=== PATIENT | male | born 1995 | race Caucasian/White ===

== ENCOUNTER 2020-02-25 09:59 | Outpatient (REF) | payer OTHER, SELFPAY | END 2020-02-25 10:00 | disposition home or self-care (01) | LOC: HO.LNP 09:59 | PROVIDERS: Visit Provider Nurse Practitioner Family | DX: L03.039 Cellulitis of unspecified toe (principal) | CPT/HCPCS: 87071; 87205 ==

== ENCOUNTER 2020-03-20 08:07 | Outpatient (RCR) | payer OTHER, SELFPAY | END 2020-03-22 12:05 | disposition home or self-care (01) | LOC: HO.WCC 08:07 | PROVIDERS: PCP Nurse Practitioner Family; Visit Provider Plastic Surgery | DX: Z09 Encounter for follow-up examination after completed treatment for conditions other than malignant neoplasm (principal); M79.675 Pain in left toe(s); Q05.9 Spina bifida, unspecified; L84 Corns and callosities | CPT/HCPCS: 99211 ==

== ENCOUNTER 2020-10-30 12:55 | Outpatient (RCR) | payer OTHER, SELFPAY | END 2020-11-28 11:42 | disposition home or self-care (01) | LOC: HO.WCC 12:55 | PROVIDERS: Visit Provider Physician Assistant | DX: S30.810A Abrasion of lower back and pelvis, initial encounter (principal); Q05.7 Lumbar spina bifida without hydrocephalus; Z99.3 Dependence on wheelchair | CPT/HCPCS: 11042; 99212 ==

== ENCOUNTER 2024-02-11 16:34 | Inpatient (IN) | payer OTHER, SELFPAY ==
[2024-02-11] VITALS (9 sets, daily range): BP systolic 108–158; BP diastolic 52–94; PULSE 107–121; RESP 17–21; TEMP 36.8–38.4; O2SAT 88–98; BMI 21.5
--- NOTE | ~2024-02-11 | US_ITS ---
EXAMINATION: US SCROTUM CLINICAL INFORMATION: Left-sided swelling. Pain. COMPARISON: None available. TECHNIQUE: A sonogram of the scrotum was performed assessing painting-scale appearance and color Doppler flow. Spectral Doppler analysis of the arterial and venous flow were performed in the testes bilaterally. FINDINGS: RIGHT: Right testicle measures 3.4 x 1.3 x 1.8 cm, volume 4.0 mL. No focal testicular parenchymal lesions are visualized. Spectral Doppler analysis of the arterial and venous flow is normal in the right testis. Right epididymal head is normal in size. No right hydrocele or varicocele is seen. Right epididymal Doppler flow is normal. Tiny epididymal head cyst or spermatocele LEFT: Left testicle measures 2.8 x 1.5 x 2.3 cm, volume 5 mL. No focal testicular parenchymal lesions are visualized. Spectral Doppler analysis of the arterial and venous flow is normal in the left testis. Left epididymal head is normal in size. No left hydrocele or varicocele is seen. Left epididymal Doppler flow is normal. Tiny epididymal head cyst or spermatocele There is scrotal wall thickening which is nonspecific US/US scrotum doppler IMPRESSION: No focal testicular abnormality. Color signal and vascular Doppler spectra were obtained bilaterally. No etiology for pain demonstrated Electronically signed by: Yakov Gallegos MD 02/11/2024 07:08 PM EDT RP
--- NOTE | ~2024-02-11 | XR_ITS ---
EXAMINATION: XR CHEST CLINICAL INFORMATION: Status post aspiration. Fever. On O2. COMPARISON: None available. TECHNIQUE: AP semiupright view of the chest was obtained. FINDINGS: Patchy opacities are evident within the right lung, more notably in the midline upper lobe. Left lung is clear. No pneumothorax or pleural effusion. Cardiac images, contours are normal. Pulmonary vasculature is unremarkable. No acute osseous findings. There is a tunneled segment of catheter tubing overlying the right chest with surrounding calcification at the more proximal segments. XR/XR chest 1V IMPRESSION: Patchy opacities in the right lung, most notably in the midline upper lobe, concerning for aspiration or pneumonia. Electronically signed by: Florin Jasmine MD 02/12/2024 03:46 PM EDT RP
--- NOTE | ~2024-02-11 | US_ITS ---
EXAMINATION: US SCROTUM CLINICAL INFORMATION: Left-sided swelling. Pain. COMPARISON: None available. TECHNIQUE: A sonogram of the scrotum was performed assessing painting-scale appearance and color Doppler flow. Spectral Doppler analysis of the arterial and venous flow were performed in the testes bilaterally. FINDINGS: RIGHT: Right testicle measures 3.4 x 1.3 x 1.8 cm, volume 4.0 mL. No focal testicular parenchymal lesions are visualized. Spectral Doppler analysis of the arterial and venous flow is normal in the right testis. Right epididymal head is normal in size. No right hydrocele or varicocele is seen. Right epididymal Doppler flow is normal. Tiny epididymal head cyst or spermatocele LEFT: Left testicle measures 2.8 x 1.5 x 2.3 cm, volume 5 mL. No focal testicular parenchymal lesions are visualized. Spectral Doppler analysis of the arterial and venous flow is normal in the left testis. Left epididymal head is normal in size. No left hydrocele or varicocele is seen. Left epididymal Doppler flow is normal. Tiny epididymal head cyst or spermatocele There is scrotal wall thickening which is nonspecific US/US scrotum IMPRESSION: No focal testicular abnormality. Color signal and vascular Doppler spectra were obtained bilaterally. No etiology for pain demonstrated Electronically signed by: Yakov Gallegos MD 02/11/2024 07:08 PM EDT RP
--- NOTE | ~2024-02-11 | CT_ITS ---
EXAMINATION: CT PELVIS WITH CONTRAST CLINICAL INFORMATION: Left lower buttock cellulitis COMPARISON: None available. TECHNIQUE: Helical scanning was performed with submillimeter collimation through the pelvis with the use of oral contrast and during bolus intravenous injection of 100 mL of Omnipaque 350 intravenous contrast. Sagittal and coronal multiplanar 2-D reconstructions were obtained. This CT examination was performed using dose optimization techniques as appropriate, variously including the following: *Automated exposure control *Adjustment of mA and/or kV according to patient size (this includes techniques or standardized protocols for targeted exams where dose is matched to indication/reason for exam; i.e. extremities or head) *Use of iterative reconstruction technique DLP: 259 mGy-cm FINDINGS: REPRODUCTIVE: Prostate normal in size. GASTROINTESTINAL: Unremarkable. GENITOURINARY: Circumferential wall thickening of the urinary bladder. VASCULATURE: Unremarkable. SOFT TISSUE/MUSCULOSKELETAL: Partially imaged lumbar meningocele. Bilateral hip subluxation. No osseous cortical erosive changes to suggest osteomyelitis. There is extensive subcutaneous gas along the inferior aspect of the left gluteus with associated fatty stranding and overlying skin thickening. This extends medially to include the base of the left hemiscrotum. Scrotal thickening present. No drainable fluid collection. 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 This critical test result was discussed with Dr. Perez at 2022 on 02/11/[address] Adam Dumas at the time of discovery. It was ascertained that the content and the importance of the findings was understood at the time of the direct communication. Electronically signed by: Adam Dumas DO 02/11/2024 08:32 PM EDT
--- NOTE | 2024-02-11 16:46 | ED_ITS ---
HPI - Extremity Problem General Chief complaint: Wound/Laceration Stated complaint: draining ulcer on the back of left leg Time Seen by Provider: 02/11/24 17:53 Source: patient, family (mother), RN notes reviewed and old records reviewed Mode of arrival: wheelchair Limitations: no limitations History of Present Illness ED Provider: Ana MATSON Narrative: 28-year-old male past medical history significant for spina bifida presents for evaluation of a wound to his left lower buttocks. Patient in his mother state that the patient was transferring from his wheelchair ?to the steps 2 days ago. He ended up falling onto his buttocks. Per the mother he had a bruise there initially. Yesterday she noticed a small ?pain whole wound. ? Today there has been foul-smelling drainage and significant changes to the wound that are now involving the scrotum on the left side. The patient has not had any fevers or chills per his report He reports pain to the area Related Data Home Medications ?Medication ?Instructions ?Recorded ?Confirmed ibuprofen 200 mg tablet 400 mg PO Q8H PRN Fever/Pain 02/11/24 02/11/24 Previous Rx's ?Medication ?Instructions ?Recorded wheelchair #1 ea 06/14/20 Allergies Allergy/AdvReac Type Severity Reaction Status Date / Time latex [LATEX] Allergy Unknown UNKNOWN Verified 02/11/24 16:47 Review of Systems 2 Constitutional: Constitutional: Denies body ache(s), Denies chills and Denies fever(s) Cardiovascular: Cardiovascular: Denies chest pain and Denies dyspnea Respiratory: Respiratory: Denies cough and Denies dyspnea Gastrointestinal: Gastrointestinal: Denies abdominal pain, Denies nausea and Denies vomiting Genitourinary: Genitourinary: Denies penile discharge Musculoskeletal: Musculoskeletal: Reports back pain (chronic back pain) Integumentary/Breasts: Skin/Breast: Reports erythema, Reports skin pain, Reports skin swelling and Reports wounds PMFSH Past Medical History Medical History HTN (hypertension) Spina bifida Family History Family History Father No problems noted. Mother No problems noted. Social History Social History (Reviewed 09/11/22 @ 14:10 by [facility]arte Morales [facility]ment Alcohol intake: current Alcohol intake frequency: holidays/special occasions only Patient Tobacco Use Status: Never used Tobacco Smoked in Last 30 Days: No e-Cigarette/Vaping Use: Currently Using Second Hand Smoke Exposure: No Use of substances other than those prescribed or required for medical reasons: Yes Substance Use Type: Marijuana Advance Directives: No Advance Directives Information Provided: No Do you have a plan to hurt others: No Plan Current occupational status: disabled Physical Exam 2 Vital Signs: Vital Signs: Last Vital Signs Temp 98.3 F 02/11/24 19:56 Pulse 120 H 02/11/24 19:56 Resp 17 02/11/24 19:56 BP 121/77 02/11/24 19:56 Pulse Ox 97 02/11/24 19:56 O2 Del Method Room Air 02/11/24 19:56 BMI result Body Mass Index 21.5 Const: General: healthy appearing, comfortable, no acute distress, alert and awake Nutritional Appearance: well nourished Orientation/consciousness: p atient oriented x3 HEENT: Head: Yes normocephalic and Yes atraumatic Eyes: Eyelids: Yes eyelids normal Conjunctivae: conjunctivae normal S clerae: sclerae normal Corneas: corneas normal Pupils: Equal, round and reactive pupils present EOM: EOMs intact bilaterally Neck: Neck: Yes full ROM Resp: Effort & Inspection: normal respiratory effort, able to speak in complete sentences and not labored GI: Inspection: No distended Palpation (GI): Soft to palpation, not firm, nontender, no guarding and not rigid Skin: Other: Significant erythema to the left lower buttocks extending towards the left hemiscrotum. There is induration to the area. There is a central ulcer and eschar to the left lower buttocks area. General skin exam: elasticity normal Neuro: General: patient oriented x3 Cranial nerves: Yes Equal, round and reactive pupils present and Yes Bilaterally intact EOM present Cognition (Neuro): normal cognition Course Course Course Narrative: This is a Rapid Medical Examination (RME) performed by Viviana Waddell PA-C in triage. Full HPI, ROS, assessment and treatment plan per primary provider in the Main ED. 28 yo wheelchair bound male with history of spina bifida who presents to the ER for evaluation of a draining ulcer on the back of his left leg 2 days ago. He reports the area started as a bruise after he injured himself transferring from his wheelchair to the stairs. It progresses to open and drain a foul smelling pus. Left testicle is now swollen and painful. Low grade temp in triage and tachycardic. Plan: labs, scrotal U/S and wound assessment Reevaluation(s) Reevaluation #1: I reviewed the patient's CT scan which appears to show a significant amount of gas in the subcutaneous spaces. I immediately sent a targeted message to the on-call surgeon and urologist as it appears to involve the scrotum. Sepsis focused exam performed and remains unchanged from initial exam Time: 19:05 Reevaluation #2: Patient has now been seen by both Urology and General surgery and the patient will go to the OR tonight Time: 21:10 Medications Administered Generic Name Dose Route Start Last Admin Trade Name Freq PRN Reason Stop Dose Admin Potassium Chloride/Sodium Chloride 20 meq in 1,000 mls @ 150 mls/hr 02/11/24 18:30 02/11/24 19:39 Kcl 20 Meq In 0.9 % Sodium Chl IVCONT 150 mls/hr .Q6H40M [facility]ARY Administration Discontinued Medications Generic Name Dose Route Start Last Admin Trade Name Freq PRN Reason Stop Dose Admin Acetaminophen 975 mg 02/11/24 18:27 02/11/24 18:33 Acetaminophen 325 Mg Tablet PO 02/11/24 18:28 975 mg ONCE ONE Administration Piperacillin Sod/Tazobactam 50 mls @ 100 mls/hr 02/11/24 18:11 02/11/24 19:03 Sod 3.375 gm/ Sodium Chloride IV 02/11/24 18:40 Infused ONCE ONE Infusion Sodium Chloride 1,000 mls @ 999 mls/hr 02/11/24 18:15 02/11/24 19:30 Ns IV 02/11/24 19:15 Infused .Q1H1M H[facility]ARY Infusion Vancomycin HCl 1,500 mg/ 500 mls @ 333.333 mls/hr 02/11/24 18:30 02/11/24 20:35 Sodium Chloride IV 02/11/24 19:59 Infused ONCE ONE Infusion Iohexol 100 ml 02/11/24 18:59 02/11/24 18:59 Iohexol 350 Mg/Ml 100 Ml Infus..Btl IV 02/11/24 19:00 85 ml ONCE ONE Administration Lidocaine HCl 10 ml 02/11/24 20:00 02/11/24 20:10 Lidocaine Hcl 2 % Urojet 10 Ml Jel.Pf.Elroy TOPICAL 02/11/24 20:01 10 ml ONCE ONE Administration Lorazepam 1 mg 02/11/24 18:16 02/11/24 18:33 Lorazepam 2 Mg/Ml Vial IVPUSH 02/11/24 18:17 1 mg ONCE ONE Administration Morphine Sulfate 4 mg 02/11/24 20:00 02/11/24 20:09 Morphine Sulfate 4 Mg/Ml Cartridge IVPUSH 02/11/24 20:01 4 mg ONCE ONE Administration Protocol Ondansetron HCl 4 mg 02/11/24 20:00 02/11/24 20:09 Ondansetron Hcl 4 Mg/2 Ml Vial IVPUSH 02/11/24 20:01 4 mg ONCE ONE Administration Potassium Chloride 60 meq 02/11/24 17:41 02/11/24 17:59 Potassium Chloride Er 20 Meq Tab.Er.Prt PO 02/11/24 17:42 60 meq ONCE ONE Administration Medical Decision Making Medical Decision Making [facility] Narrative: Given the patient's reported rapidly progressing wound and skin inflammation, 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 I ordered a stat CT scan of the pelvis with IV contrast. I ordered vancomycin and Zosyn as the patient meets SIRS criteria and is septic. Blood pressure is currently stable. The patient also has a 16[place] [address] Lactate is currently normal. Differential Diagnosis Differential Diagnoses: The differential diagnosis associated with the presentation includes Mikayla's gangrene Necrotizing fasciitis Cellulitis Abscess Sepsis Admission/Observation Consideration of admission/observation: Escalation of care including admission/observation considered Consult Healthcare Provider Management of the patient was discussed with: Explosive Ordnance Disposal Manager General surgery as well as Urology Lab Data [facility] Lab Attestation statement: I reviewed the patient's lab results. White count 24.6 1000, mild anemia. There is a hypokalemia of 2.6. Elevated inflammatory markers likely related to the significant cellulitis 02/11/24 17:06 02/11/24 17:06 Labs: Lab Results 09/02/11/24 02/11/24 Range/Units 17:05 17:06 18:24 WBC 24.6 H (4.8-10.8) X10*3/uL RBC 4.11 L (4.60-5.80) X10*6/uL Hgb 12.8 L (14.0-18.0) g/dl Hct 35.1 L (42.0-52.0) % MCV 85.4 (80.0-98.0) fL MCH 31.1 (27.0-33.0) pg MCHC 36.5 H (31.0-36.0) g/dl RDW 13.6 (11.0-16.0) % Plt Count 342 (160-400) X10*3/uL MPV 9.2 L (9.4-12.4) fL Immature Gran % (Auto) Cancelled Neut % (Auto) Cancelled Lymph % (Auto) Cancelled [place] % (Auto) Cancelled Eos % (Auto) Cancelled Baso % (Auto) Cancelled Lymph # (Auto) Cancelled [place] # (Auto) Cancelled Eos # (Auto) Cancelled Baso # (Auto) Cancelled Abs Immat Gran (auto) Cancelled Absolute Neuts (auto) Cancelled Absolute Nucleated RBC 0.000 (0.0-0.012) X10*3/uL Nucleated RBC % (auto) 0.0 (0.0-0.2) /100WBC Neutrophils % (Manual) 66 (45-73) % Band Neutrophils % 16 H (3-5) % Lymphocytes % (Manual) 6 L (20-40) % Monocytes % (Manual) 11 (2-11) % Basophils % (Manual) 1 (0-2) % Abs Neuts (Manual) 20.2 H (2.0-8.3) X10*3/uL Lymphocytes # (Manual) 1.5 (1.2-4.9) X10*3/uL Monocytes # (Manual) 2.7 H (0.1-1.2) X10*3/uL Basophils # (Manual) 0.2 (0.0-0.2) X10*3/uL Platelet Estimate NORMAL (NORMAL) Plt Morphology Comment NORMAL RBC Morphology NORMAL Smear Tech's Comments MANUAL DIFF ESR 85 H (0-15) MM/HR PT 14.1 H (10.9-12.4) SEC INR 1.2 H (0.9-1.1) APTT 28.5 (26.0-36.8) SEC Sodium 137 (135-145) mmol/L Potassium 2.6 L* (3.3-5.1) mmol/L Chloride 97 (96-108) mmol/L Carbon Dioxide 28 (22-29) mmol/L Anion Gap 15 (12-20) BUN 7 L (9-16) mg/dL Creatinine 0.61 (0.5-1.4) mg/dL Estim Creat Clear Calc 143.2 Estimated GFR > 60 Random Glucose 93 (60-115) mg/dL Lactic Acid 1.5 (0.5-2.0) mmol/L Calcium 9.4 (8.4-10.2) mg/dL Magnesium 2.2 (1.6-2.6) mg/dL Total Bilirubin 1.5 H (0.0-1.0) mg/dL Direct Bilirubin 0.8 H (0.0-0.5) mg/dL AST 32 (5-37) U/L ALT 26 (0-40) U/L Alkaline Phosphatase 180 H (39-117) U/L C-Reactive Protein 43.14 H (< or = 0.50) mg/dL Total Protein 7.7 (6.5-8.0) g/dL Albumin 3.6 (3.5-5.0) g/dL Urine Color Urine Appearance Urine pH (5.0-9.0) Ur Specific [place] (1.005-1.025) Urine Protein (Neg-Trace) mg/dL Urine Glucose (UA) (Negative) mg/dL Urine Ketones (Negative) mg/dL Urine Blood (Negative) Urine Nitrite (Negative) Ur Leukocyte Esterase (Negative) Urine RBC (0-2) /HPF Urine WBC (0-5) /HPF Ur Squamous Epith Cells (0-2) /HPF Urine Bacteria (None Seen) Hyaline Casts (0-2) /LPF Blood Type Antibody Screen 02/11/24 02/11/24 Range/Units 19:12 19:14 WBC (4.8-10.8) X10*3/uL RBC (4.60-5.80) X10*6/uL Hgb (14.0-18.0) g/dl Hct (42.0-52.0) % MCV (80.0-98.0) fL MCH (27.0-33.0) pg MCHC (31.0-36.0) g/dl RDW (11.0-16.0) % Plt Count (160-400) X10*3/uL MPV (9.4-12.4) fL Immature Gran % (Auto) Neut % (Auto) Lymph % (Auto) [place] % (Auto) Eos % (Auto) Baso % (Auto) Lymph # (Auto) [place] # (Auto) Eos # (Auto) Baso # (Auto) Abs Immat Gran (auto) Absolute Neuts (auto) Absolute Nucleated RBC (0.0-0.012) X10*3/uL Nucleated RBC % (auto) (0.0-0.2) /100WBC Neutrophils % (Manual) (45-73) % Band Neutrophils % (3-5) % Lymphocytes % (Manual) (20-40) % Monocytes % (Manual) (2-11) % Basophils % (Manual) (0-2) % Abs Neuts (Manual) (2.0-8.3) X10*3/uL Lymphocytes # (Manual) (1.2-4.9) X10*3/uL Monocytes # (Manual) (0.1-1.2) X10*3/uL Basophils # (Manual) (0.0-0.2) X10*3/uL Platelet Estimate (NORMAL) Plt Morphology Comment RBC Morphology Smear Tech's Comments ESR (0-15) MM/HR PT (10.9-12.4) SEC INR (0.9-1.1) APTT (26.0-36.8) SEC Sodium (135-145) mmol/L Potassium (3.3-5.1) mmol/L Chloride (96-108) mmol/L Carbon Dioxide (22-29) mmol/L Anion Gap (12-20) BUN (9-16) mg/dL Creatinine (0.5-1.4) mg/dL Estim Creat Clear Calc Estimated GFR Random Glucose (60-115) mg/dL Lactic Acid (0.5-2.0) mmol/L Calcium (8.4-10.2) mg/dL Magnesium (1.6-2.6) mg/dL Total Bilirubin (0.0-1.0) mg/dL Direct Bilirubin (0.0-0.5) mg/dL AST (5-37) U/L ALT (0-40) U/L Alkaline Phosphatase (39-117) U/L C-Reactive Protein (< or = 0.50) mg/dL Total Protein (6.5-8.0) g/dL Albumin (3.5-5.0) g/dL Urine Color Dark Yellow Urine Appearance Clear Urine pH 5.5 (5.0-9.0) Ur Specific [place] >= 1.030 H (1.005-1.025) Urine Protein 30 (1+) H (Neg-Trace) mg/dL Urine Glucose (UA) Negative (Negative) mg/dL Urine Ketones >=160 (Negative) mg/dL Urine Blood Moderate (2+) H (Negative) Urine Nitrite Negative (Negative) Ur Leukocyte Esterase Trace H (Negative) Urine RBC >20 H (0-2) /HPF Urine WBC 0-5 (0-5) /HPF Ur Squamous Epith Cells 3-5 (0-2) /HPF Urine Bacteria None Seen (None Seen) Hyaline Casts 3-5 (0-2) /LPF Blood Type AB Positive Antibody Screen NEGATIVE Independent Interpretation I performed an independent interpretation of an: EKG (Sinus tachycardia rate of [address] depressions in the lateral leads possibly related to demand ischemia versus hypokalemia) and CT Scan Interpretation: Cellulitis with significant subcutaneous gas Critical Care Time Critical Care Time Critical Care Time: Yes Total Critical Care Time: 60 Attestation: 28-year-old male presents for evaluation of a skin infection. He was found to be septic with a skin infection as the source. This was consistent with Mikayla's gangrene and multiple specialist consultations were made. The patient ultimately went emergently to the operating room. Discharge Plan Discharge Clinical Impression: Mikayla gangrene, Hypokalemia Patient Disposition: Admitted As Inpatient
[2024-02-11 17:22] LABS: Hematocrit 35.1 % (42.0-52.0); Hemoglobin 12.8 g/dl (14.0-18.0); Mean Corpuscular HGB Conc 36.5 g/dl (31.0-36.0); Mean Corpuscular Hemoglobin 31.1 pg (27.0-33.0); Mean Corpuscular Volume 85.4 fL (80.0-98.0); Mean Platelet Volume 9.2 fL (9.4-12.4); Platelet Count 342 X10*3/uL (160-400); Red Blood Count 4.11 X10*6/uL (4.60-5.80); Red Cell Distribution Width 13.6 % (11.0-16.0); White Blood Count 24.6 X10*3/uL (4.8-10.8)
[2024-02-11 17:26] LABS: Lactic Acid 1.5 mmol/L (0.5-2.0)
[2024-02-11 17:39] LABS: Alanine Aminotransferase 26 U/L (0-40); Albumin Level 3.6 g/dL (3.5-5.0); Alkaline Phosphatase 180 U/L (39-117); Anion Gap 15 (12-20); Aspartate Amino Transferase 32 U/L (5-37); Bilirubin Direct 0.8 mg/dL (0.0-0.5); Bilirubin Total 1.5 mg/dL (0.0-1.0); Blood Urea Nitrogen 7 mg/dL (9-16); C Reactive Protein 43.14 mg/dL (< or = 0.50); Calcium 9.4 mg/dL (8.4-10.2); Carbon Dioxide 28 mmol/L (22-29); Chloride 97 mmol/L (96-108); Creatinine Clr Calc Pharmacy 143.2; Estimated Glomerular Filt Rate > 60; Glucose Random 93 mg/dL (60-115); Magnesium 2.2 mg/dL (1.6-2.6); Potassium 2.6 mmol/L (3.3-5.1); Sodium 137 mmol/L (135-145); Total Protein 7.7 g/dL (6.5-8.0)
[2024-02-11] MEDS: Potassium Chloride ER 20 MEQ TAB.ER.PRT 60 MEQ PO (17:59)
[2024-02-11 18:10] LABS: Erythrocyte Sedimentation Rate 85 MM/HR (0-15)
--- NOTE | 2024-02-11 18:17 | ECG_ITS ---
Test Reason : HYPOKALEMIA Blood Pressure : / mmHG Vent. Rate : 122 BPM Atrial Rate : 122 BPM P-R Int : 114 ms QRS Dur : 092 ms QT Int : 326 ms P-R-T Axes : 042 050 013 degrees QTc Int : 464 ms Sinus tachycardia T wave abnormality, consider anterior ischemia Abnormal ECG No previous ECGs available Referred By: Ron Perez Electronically Signed By:LEXX ARMENTA
[2024-02-11] MEDS: 0.9 % Sodium Chloride 1,000 ML 999 ML IV (18:18)
[2024-02-11 18:20] LABS: SLIDE REVIEW MANUAL DIFF
[2024-02-11 18:26] LABS: Neutrophils Percent Manual 66 % (45-73)
[2024-02-11 18:28] LABS: Band Neutrophils Percent 16 % (3-5); Basophils Abs Manual 0.2 X10*3/uL (0.0-0.2); Basophils Percent Manual 1 % (0-2); Lymphocytes Absolute Manual 1.5 X10*3/uL (1.2-4.9); Lymphocytes Percent Manual 6 % (20-40); Monocytes Absolute Manual 2.7 X10*3/uL (0.1-1.2); Monocytes Percent Manual 11 % (2-11); Neutrophils Absolute Manual 20.2 X10*3/uL (2.0-8.3)
[2024-02-11 18:29] LABS: Platelet Estimate NORMAL (NORMAL); Platelet Morphology Comment NORMAL; RBC Morphology NORMAL
[2024-02-11] MEDS: Piperacillin Sodium/Tazobactam 3.375 GM in 0.9 % Sodium Chloride 50 ML IV (18:33)
[2024-02-11] MEDS: Acetaminophen 325 MG TABLET 975 MG PO (18:33)
[2024-02-11] MEDS: LORazepam 2 MG/ML VIAL 1 MG IVPUSH (18:33)
[2024-02-11 18:40] LABS: INTERNATIONAL NORM RATIO 1.2 (0.9-1.1); Prothrombin Time 14.1 SEC (10.9-12.4)
[2024-02-11 18:43] LABS: Partial Thromboplastin Time 28.5 SEC (26.0-36.8)
[2024-02-11] MEDS: iohexoL 350 MG/ML 100 ML INFUS..BTL IV (18:59)
[2024-02-11] MEDS: vancomycin HCL 1,500 MG in 0.9 % Sodium Chloride 500 ML 333.33 MG IV (19:04)
--- NOTE | 2024-02-11 19:17 | PC.NURSE ---
straight catheterization performed by alex kimbrough RN. 100ml of clear, kat, foul smelling urine noted immediately post output. specimen obtained/sent to lab. pt tolerated intervention well w/o any complications. pt repositioned to comfort. plan of care ongoing.
[2024-02-11 19:24] LABS: Appearance Urine Clear; Color Urine Dark Yellow; Glucose Urine UA Negative (Negative); Leukocyte Esterase Urine Trace (Negative); Nitrite Urine Negative (Negative); PH 5.5 (5.0-9.0); Specific Gravity - Urine >= 1.030 (1.005-1.025); UMIC TRIGGER UACC YES; Urine Blood Moderate (2+) (Negative); Urine Ketones >=160 mg/dL (Negative); Urine Protein 30 (1+) mg/dL (Neg-Trace)
[2024-02-11] MEDS: KCl 20 mEq in 0.9 % Sodium ChL 20 MEQ/1,000 ML IV.SOLN 150 MEQ IVCONT (19:39)
[2024-02-11] MEDS: Morphine Sulfate 4 MG/ML CARTRIDGE IVPUSH (20:09)
[2024-02-11] MEDS: ondansetron HCL 4 MG/2 ML VIAL IVPUSH (20:09)
[2024-02-11] MEDS: Lidocaine HCl 2 % Urojet 10 ML JEL.PF.APP TOPICAL (20:10)
[2024-02-11 20:14] LABS: Bacteria Urine None Seen (None Seen); RBC Urine >20 /HPF (0-2); WBC Urine 0-5 /HPF (0-5)
--- NOTE | 2024-02-11 20:15 | PC.NURSE ---
pt medicated per order, urologist came and requested urojet and lin to be put at bedside for her to insert.
--- NOTE | 2024-02-11 20:35 | PC.NURSE ---
urologist inserted lin cath
--- NOTE | 2024-02-11 20:53 | PC.NURSE ---
pt is NPO, surgeon came in and stated that he will need to go to the OR tonight
--- NOTE | 2024-02-11 21:23 | PHA.MEDREC ---
Addendum entered by Aylin Figueroa RPh 02/11/24 21:29: Reviewed by [facility] Original Note: Pharmacy Consult ? Medication Reconciliation Pharmacy has completed the medication reconciliation. Confirmed medications with patient mom at bedside. She states she only gives the patient Ibuprofen 200mg 2 tab as needed for fevers or pain. She states she gave it to him last night around 2100.
--- NOTE | 2024-02-11 21:37 | PM.HPGS ---
History of Present Illness History of Present Illness Date of Service: 02/11/24 Chief complaint: Wounds Narrative: Brad Sanchez is a 28 year old male with spina bifida who 3 days ago was transferring from his wheelchair to the floor and landed hard. He had a little bit of a bruise and induration on the back of his thigh gluteal crease area for awhile. The following day there was a little hole there and then by the next day today there was necrotic tissue an odor and the patient had chills. He lives with his mom and she was taking care this area. As a result she brought him into the emergency room where his white count was noted to be 27 and he had an ultrasound which showed normal scrotal anatomy and structures but peritoneum with fluid and gas going to the left buttock thigh area. He is findings were consistent with necrotizing fasciitis. He was seen by Urology who does not think that there is anything for them to do and as a result we are called to take him to the OR for debridement and further resuscitation. Patient has never had anything like this. 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 He also has had 2 SANITATION SUPERVISOR shunts. Overall he is very active in his good with moving himself lifting up and out of his wheelchair Review of Systems Review of Systems: Yes all other systems are reviewed and are negative PMFSH Past Medical History Medical History HTN (hypertension) Spina bifida Family History Family History Father No problems noted. Mother No problems noted. Social History Social History Housing: Apartment Alcohol intake: current Alcohol intake frequency: holidays/special occasions only Patient Tobacco Use Status: Never used Tobacco Smoked in Last 30 Days: No e-Cigarette/Vaping Use: Currently Using Second Hand Smoke Exposure: No Use of substances other than those prescribed or required for medical reasons: Yes Substance Use Type: Marijuana Advance Directives: No Advance Directives Information Provided: No Do you have a plan to hurt others: No Plan Current occupational status: disabled Meds Allergies Allergy/AdvReac Type Severity Reaction Status Date / Time latex [LATEX] Allergy Unknown UNKNOWN Verified 02/11/24 16:47 Active Medications: Current Medications Potassium Chloride/Sodium Chloride (Kcl 20 Meq In 0.9 % Sodium Chl) 20 meq in 1,000 mls @ 150 mls/hr IVCONT .Q6H40M [facility] Last Admin: 02/11/24 19:39 Dose: 150 mls/hr Home Medications ?Medication ?Instructions ?Recorded ?Confirmed ?Last Taken ?Type ibuprofen 200 mg tablet 400 mg PO Q8H PRN Fever/Pain 02/11/24 02/11/24 02/10/24 21:00 History Physical Exam Vital Signs: Vital Signs: Last Vital Signs Temp 98.3 F 02/11/24 19:56 Pulse 120 H 02/11/24 19:56 Resp 17 02/11/24 19:56 BP 121/77 02/11/24 19:56 Pulse Ox 97 02/11/24 19:56 O2 Del Method Room Air 02/11/24 19:56 BMI result Body Mass Index 21.5 Const: General: cooperative, healthy appearing, comfortable and no acute distress Resp: Effort & Inspection: normal respiratory effort Auscultation: clear to auscultation bilaterally Cardio: Rate: tachycardic Rhythm: regular rhythm GI: Other: abdomen soft Skin: Other: left buttock crease to medial thick with necrotic tissue and wound extending into cavity of the buttock and towards the base of the scrotum. Results Results Labs: Short CBC 02/11/24 Range/Units 17:06 WBC 24.6 H (4.8-10.8) X10*3/uL Hgb 12.8 L (14.0-18.0) g/dl Hct 35.1 L (42.0-52.0) % Plt Count 342 (160-400) X10*3/uL BMP 02/11/24 17:06 Sodium 137 Potassium 2.6 L* Chloride 97 Carbon Dioxide 28 BUN 7 L Creatinine 0.61 Calcium 9.4 Liver Function 02/11/24 Range/Units 17:06 Total Bilirubin 1.5 H (0.0-1.0) mg/dL Direct Bilirubin 0.8 H (0.0-0.5) mg/dL AST 32 (5-37) U/L ALT 26 (0-40) U/L Alkaline Phosphatase 180 H (39-117) U/L Albumin 3.6 (3.5-5.0) g/dL Urine 02/11/24 Range/Units 19:14 Urine Color Dark Yellow Urine Appearance Clear Urine pH 5.5 (5.0-9.0) Ur Specific [place] >= 1.030 H (1.005-1.025) Urine Protein 30 (1+) H (Neg-Trace) mg/dL Urine Glucose (UA) Negative (Negative) mg/dL CT scan - pelvis: report reviewed and image reviewed Additional studies: Chart - Vatler ? Diagnostics Subcategory All Activity ??:?? All Time ??:?? All Subcategories Filter Laboratory Imaging Microbiology Pathology Blood Bank Tests Cardiovascular Other Specialty DATE TYPE STATUS REF RANGE/AUTHOR Hx Today 18:[address] Signed Adam Dumas Today 16:48 Scrotum Ultrasound Signed Yakov Gallegos Dominick Acute 28, M?1995 MRN#? [id number] ADM IN,?(T) ?HO.SSS?? 5ft 4in 125lb BSA: 1.60m? BMI: 21.5kg/m? Acc#? [id number] Resus Status Not Ordered No Hx Avail Historical Visits Allergies latex (LATEX) UNKNOWN Problems ? ONSET Hypokalemia Mikayla gangrene Overactive bladder Wound of buttock Physical exam Infection of toenail Vital Signs Today 19:56 BP 121/77? Pulse 120?H Resp 17? Temp 98.3 F? O2 Sat 97? Delivery Room Air? Home Meds Not Confirmed Prescription Monitoring Program MEDICATIONS (INSTRUCTIONS) LAST TAKEN Active ibuprofen 400 [id number]/Pain 02/10/24 21:00 DME/Medical Supplies ??wheelchair ?Not Included in Conflicts My Widget No Data to Display Diagnostics Reports Brad Sanchez??28??M??1995 ? Allergy/Adv: latex Close Pelvis CT (Signed) Adam Dumas - 02/11/24 Scrotum Ultrasound (Signed) Yakov Gallegos - 02/11/24 Launch?Image [address] [address] [address] Scan Report Signed Patient: DanielBrad MR#: [id number] : 1995 Acct:[id number] Age/Sex: 28 / M ADM Date: 02/11/24 Loc: HO.ED Attending Dr: Ordering Physician: Ron Perez Date of Service: 02/11/24 Procedure(s): CT pelvis w IV con Accession Number(s): [id number] cc: Duarte Morales CONTINUOUS IMPROVEMENT LEAD-BC; Ron Perez~ EXAMINATION: CT PELVIS WITH CONTRAST CLINICAL INFORMATION: Left lower buttock cellulitis COMPARISON: None available. TECHNIQUE: Helical scanning was performed with submillimeter collimation through the pelvis with the use of oral contrast and during bolus intravenous injection of 100 mL of Omnipaque 350 intravenous contrast. Sagittal and coronal multiplanar 2-D reconstructions were obtained. This CT examination was performed using dose optimization techniques as appropriate, variously including the following: *Automated exposure control *Adjustment of mA and/or kV according to patient size (this includes techniques or standardized protocols for targeted exams where dose is matched to indication/reason for exam; i.e. extremities or head) *Use of iterative reconstruction technique DLP: 259 mGy-cm FINDINGS: REPRODUCTIVE: Prostate normal in size. GASTROINTESTINAL: Unremarkable. GENITOURINARY: Circumferential wall thickening of the urinary bladder. VASCULATURE: Unremarkable. SOFT TISSUE/MUSCULOSKELETAL: Partially imaged lumbar meningocele. Bilateral hip subluxation. No osseous cortical erosive changes to suggest osteomyelitis. There is extensive subcutaneous gas along the inferior aspect of the left gluteus with associated fatty stranding and overlying skin thickening. This extends medially to include the base of the left hemiscrotum. Scrotal thickening present. No drainable fluid collection. 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 This critical test result was discussed with Dr. Perez at 2022 on 02/11/[address] Adam Dumas at the time of discovery. It was ascertained that the content and the importance of the findings was understood at the time of the direct communication. Electronically signed by: Adam Dumas DO 02/11/2024 08:32 PM EDT Dictated By: Dumas,Adam Signed By: <Electronically signed by Adam Dumas in OV> 02/11/242031 DD/ 41 TD/TT: 02/11/24 185 Fatback Trimmer: Assessment and Plan (1) Mikayla gangrene: Status: Acute Plan 28-year-old male with spina bifida and Mikayla's gangrene infection for the last 2- 3 days. Plan to go to the OR for wide debridement and packing of this necrotic tissue. IV antibiotics. Intraop we will place Daley catheter. Patient is septic plan for telemetry bed hospitalist consult afterwards Quality Stroke Does the patient have a stroke diagnosis?: No VTE Prior VTE?: No VTE Risk Level:: Surgical - moderate VTE Device Contraindication: N/A - Device Ordered VTE Drug Contraindication: N/A - Med Ordered Procedures Date of Service Date of Service: 02/11/24
--- NOTE | 2024-02-11 21:50 | HO.ANESPROP2 ---
HPI - Anesthesia Eval Consult details Narrative: Necrotizing fasciitis PMFSH Active Problems Active Problems: All Active Problems Hypokalemia (Acute) Mikayla gangrene (Acute) Overactive bladder (Acute) Wound of buttock (Acute) Physical exam (Acute) Infection of toenail (Acute) Past Medical History Medical History HTN (hypertension) Spina bifida Family History Family History Father No problems noted. Mother No problems noted. Family history of problems with anesthesia: No Surgical History History of Problems with Anesthesia: No Social History Social History Housing: Apartment Alcohol intake: current Alcohol intake frequency: holidays/special occasions only Patient Tobacco Use Status: Never used Tobacco Smoked in Last 30 Days: No e-Cigarette/Vaping Use: Currently Using Second Hand Smoke Exposure: No Use of substances other than those prescribed or required for medical reasons: Yes Substance Use Type: Marijuana Advance Directives: No Advance Directives Information Provided: No Do you have a plan to hurt others: No Plan Current occupational status: disabled Meds Allergies Allergy/AdvReac Type Severity Reaction Status Date / Time latex [LATEX] Allergy Unknown UNKNOWN Verified 02/11/24 16:47 Active Medications: Current Medications Potassium Chloride/Sodium Chloride (Kcl 20 Meq In 0.9 % Sodium Chl) 20 meq in 1,000 mls @ 150 mls/hr IVCONT .Q6H40M [facility] Last Admin: 02/11/24 19:39 Dose: 150 mls/hr Home Medications ?Medication ?Instructions ?Recorded ?Confirmed ?Last Taken ?Type ibuprofen 200 mg tablet 400 mg PO Q8H PRN Fever/Pain 02/11/24 02/11/24 02/10/24 21:00 History Exam Height,Weight and Vital Signs: Height 5 ft 4 in Weight 56.699 kg Last Vital Signs Temp 98.3 F 02/11/24 19:56 Pulse 120 H 02/11/24 19:56 Resp 17 02/11/24 19:56 BP 121/77 02/11/24 19:56 Pulse Ox 97 02/11/24 19:56 O2 Del Method Room Air 02/11/24 19:56 Pertinent Lab Results Pertinent Lab Results: Laboratory Tests 02/11/24 02/11/24 02/11/24 17:05 17:06 18:24 WBC 24.6 H RBC 4.11 L Hgb 12.8 L Hct 35.1 L MCV 85.4 MCH 31.1 MCHC 36.5 H RDW 13.6 Plt Count 342 MPV 9.2 L Immature Gran % (Auto) Cancelled Neut % (Auto) Cancelled Lymph % (Auto) Cancelled [place] % (Auto) Cancelled Eos % (Auto) Cancelled Baso % (Auto) Cancelled Lymph # (Auto) Cancelled [place] # (Auto) Cancelled Eos # (Auto) Cancelled Baso # (Auto) Cancelled Abs Immat Gran (auto) Cancelled Absolute Neuts (auto) Cancelled Absolute Nucleated RBC 0.000 Nucleated RBC % (auto) 0.0 Neutrophils % (Manual) 66 Band Neutrophils % 16 H Lymphocytes % (Manual) 6 L Monocytes % (Manual) 11 Basophils % (Manual) 1 Abs Neuts (Manual) 20.2 H Lymphocytes # (Manual) 1.5 Monocytes # (Manual) 2.7 H Basophils # (Manual) 0.2 Platelet Estimate NORMAL Plt Morphology Comment NORMAL RBC Morphology NORMAL Smear Tech's Comments MANUAL DIFF ESR 85 H PT 14.1 H INR 1.2 H APTT 28.5 Sodium 137 Potassium 2.6 L* Chloride 97 Carbon Dioxide 28 Anion Gap 15 BUN 7 L Creatinine 0.61 Estim Creat Clear Calc 143.2 Estimated GFR > 60 Random Glucose 93 Lactic Acid 1.5 Calcium 9.4 Magnesium 2.2 Total Bilirubin 1.5 H Direct Bilirubin 0.8 H AST 32 ALT 26 Alkaline Phosphatase 180 H C-Reactive Protein 43.14 H Total Protein 7.7 Albumin 3.6 Urine Color Urine Appearance Urine pH Ur Specific [place] Urine Protein Urine Glucose (UA) Urine Ketones Urine Blood Urine Nitrite Ur Leukocyte Esterase Urine RBC Urine WBC Ur Squamous Epith Cells Urine Bacteria Hyaline Casts Blood Type Antibody Screen 02/11/24 02/11/24 19:12 19:14 WBC RBC Hgb Hct MCV MCH MCHC RDW Plt Count MPV Immature Gran % (Auto) Neut % (Auto) Lymph % (Auto) [place] % (Auto) Eos % (Auto) Baso % (Auto) Lymph # (Auto) [place] # (Auto) Eos # (Auto) Baso # (Auto) Abs Immat Gran (auto) Absolute Neuts (auto) Absolute Nucleated RBC Nucleated RBC % (auto) Neutrophils % (Manual) Band Neutrophils % Lymphocytes % (Manual) Monocytes % (Manual) Basophils % (Manual) Abs Neuts (Manual) Lymphocytes # (Manual) Monocytes # (Manual) Basophils # (Manual) Platelet Estimate Plt Morphology Comment RBC Morphology Smear Tech's Comments ESR PT INR APTT Sodium Potassium Chloride Carbon Dioxide Anion Gap BUN Creatinine Estim Creat Clear Calc Estimated GFR Random Glucose Lactic Acid Calcium Magnesium Total Bilirubin Direct Bilirubin AST ALT Alkaline Phosphatase C-Reactive Protein Total Protein Albumin Urine Color Dark Yellow Urine Appearance Clear Urine pH 5.5 Ur Specific [place] >= 1.030 H Urine Protein 30 (1+) H Urine Glucose (UA) Negative Urine Ketones >=160 Urine Blood Moderate (2+) H Urine Nitrite Negative Ur Leukocyte Esterase Trace H Urine RBC >20 H Urine WBC 0-5 Ur Squamous Epith Cells 3-5 Urine Bacteria None Seen Hyaline Casts 3-5 Blood Type AB Positive Antibody Screen NEGATIVE Airway Mallampati Class: II TM Dist: >3cm Neck ROM: Full Loose/Missing/Broken Teeth: No Heart: RRR Lungs: CTA Assessment and Plan Assessment Anesthesia Assessment: Anesthesia Plan Discussed and Chart Reviewed Final Anesthetic Review Family History of Problems with Anesthesia: No History of Problems with Anesthesia: No NPO: Yes ASA Class: II and Emergency Final Preanesthetic Review: No Changes in Pt Med Stat, Meds/Allgs Chart Reviewed, Consent Obtained/Reviewed and Anes Risks/Benef Reviewed Patient Risk: Intermediate Procedure Risk: Low Anesthetic Plan Anesthetic Plan: GA
--- NOTE | 2024-02-11 23:31 | W.PM.OPN ---
Operative Note Operative Note Date of Service: 02/11/24 Narrative: Preop diagnosis-necrotizing fasciitis left buttock perineal scrotal area Postop diagnosis--same Procedure- debridement of necrotizing fasciitis tissue left buttock perineal area. Surgeon--Marcelaeliane Anesthesia--general LMA History--patient is a 28-year-old male spina bifida decreased sensation buttocks area had a little trauma to the area about 3 days ago and then developed some induration and then this turned into a wound and accelerated in its course. He came into the emergency room as his mom saw this necrotic tissue and was noted to have gas in the deep soft tissue elevated white count tachycardic. As result plan was to come to the OR for debridement and start antibiotics in the emergency room. Findings--patient with necrotic tissue along the left gluteal crease area extending medially to the perineal going up to the suprapubic area and base of the scrotum. The area also involved the ischiorectal space but did not involve the rectal tissue itself. Procedure-- Patient was brought to the operative room under Anesthesia guidance LMA was placed and he was placed under general anesthesia. He was placed in lithotomy position and the areas of necrotic tissue and opening was noted to be more in the left side going towards the base of the scrotum in the intragluteal crease. A Daley catheter had already been placed the patient was prepped and draped in standard surgical fashion. He had already been given antibiotics in the emergency room the area on the buttock which was about 3 x 3 cm of necrotic tissue was debrided into the deep ischial space with the cautery. This was then noted to connect with the open wound along the perineum and another wound a little more laterally. Eventually this area was connected to the lateral area by making an incision along the intact skin ramses the extensive cavity and as much of the necrotic tissues possible was removed. We got back to healthier bleeding tissue. The same was done for the perineal area where this open necrotic tissue was debrided to healthier deeper tissue. There was a tunnel tract that went superiorly along the perineum up to the suprapubic area. The tissue appear seemed healthy however without as much necrotic foul-smelling tissue. Posteriorly this necrotic tissue went into the ischiorectal space but not quite into the rectal passage. More necrotic tissue was debrided to healthier bleeding tissue. Pulsavac 3 L saline was irrigated throughout this entire area. Betadine saline Kerlix roll was then used to pack the ischium the perineal area and going all the way up to the suprapubic area. In total 3 openings were noted and 3 strips of packing Kerlix roll was used. At the end of the case all sponge instrument and needle counts were correct estimated blood loss was about 7 cc. A culture specimen on a swab was taken at the start of the case. Patient had LMA removed and went relatively stable to the recovery room. During the operation the patient was placed head down with the LMA and may have regurgitated little bit but not certain if any obvious aspiration. He will be monitored.
[2024-02-11] MEDS: droPERidol 5 MG/2 ML VIAL 0.625 MG IVPUSH (23:39)
[2024-02-12] VITALS (8 sets, daily range): BP systolic 130–144; BP diastolic 65–91; PULSE 88–112; RESP 17–24; TEMP 36.6–37.5; O2SAT 90–97
[2024-02-12] MEDS: Piperacillin Sodium/Tazobactam 3.375 GM in 0.9 % Sodium Chloride 50 ML IV ×4 (01:13→20:16)
[2024-02-12] MEDS: Heparin Sodium,Porcine 5,000 UNIT/ML VIAL 5000 UNIT SUBCUT ×3 (01:13→23:51)
[2024-02-12] MEDS: 0.9 % Sodium Chloride Flush 3 ML SYRINGE IVFLUSH ×2 (01:14→23:53)
[2024-02-12 01:42] LABS: Magnesium 1.9 mg/dL (1.6-2.6); Potassium 3.3 mmol/L (3.3-5.1)
[2024-02-12] MEDS: Clindamycin Phosphate/D5W 900 MG/50 ML PIGGYBACK 50 MG IV ×3 (02:06→15:44)
--- NOTE | 2024-02-12 02:49 | P.CONHOSP_ITS ---
History of Present Illness Data of Consult Service Date: 02/12/24 Requesting physician: Bren Jackson Primary Care Provider: MACARIO Ramirez HPI Reason for consult: Necrotizing fascitis, sepsis Brad Sanchez is a 28 years old man with past medical history significant for spina bifida presents to the hospital after he developed a wound to the left buttock. It seems like the patient was found pain from his wheelchair to the staff 2 days ago landing onto his buttocks. Subsequently he developed a bruise then a wound. Patient's mother noted foul-smelling discharge from the wound. Patient denied any significant pain to the area, fever or chills. He also denied any headache, chest pain, shortness on breath, nausea, vomiting or diarrhea. He denied tobacco smoking, alcohol abuse or illicit drug use. In the ED, he was found to have fever of 101.2. He was also found to have tachycardia. Blood pressure has been stable. He was found to have oxygen saturation 90% on room air and placed on supplemental oxygen via nasal cannula. Blood workup was remarkable for leukocytosis 24.2. There is no lactic acidosis. Hemoglobin is 12.8 and platelet 342. Initially, he was found to have hypokalemia of 2.6 that increased to 3.3 after repletion. There are no other electrolyte imbalances. Patient was taken to the OR for emergent surgery for debridement. According to surgeon the patient aspirated small amount. Review of Systems 2 Review of Systems: All 12 systems were reviewed and normal except as noted in HPI. [facility] Medical History HTN (hypertension) Spina bifida Family History Father No problems noted. Mother No problems noted. Social History Household Members: Family Housing: House Do you presently have visiting nurse or other home services: No (family does care now. looking for apartment soon and will need [employer]) Alcohol intake: current Alcohol intake frequency: holidays/special occasions only Patient Tobacco Use Status: Never used Tobacco e-Cigarette/Vaping Use: Currently Using Second Hand Smoke Exposure: No Substance Use Type: Marijuana Current occupational status: disabled Meds Allergies Allergy/AdvReac Type Severity Reaction Status Date / Time latex [LATEX] Allergy Unknown UNKNOWN Verified 02/11/24 16:47 Active Medications: Current Medications Acetaminophen (Acetaminophen 325 Mg Tablet) 650 mg PO Q6H PRN PRN Reason: Pain, Mild (Pain Scale 1-3), fever or headache Fentanyl (Fentanyl Citrate/Pf 100 Mcg/2 Ml Vial) 50 mcg IVPUSH Q5M PRN PRN Reason: Pain, Severe (Pain Scale 7-10) Stop: 02/12/24 03:51 Heparin Sodium (Porcine) (Heparin Sodium,Porcine 5,000 Unit/Ml Vial) 5,000 unit SUBCUT Q12H [facility] Last Admin: 02/12/24 01:13 Dose: 5,000 unit Hydromorphone HCl (Hydromorphone Hcl 0.5 Mg/0.5 Ml Syringe) 0.5 mg IVPUSH Q5M PRN PRN Reason: Pain, Moderate to Severe (Pain Scale 4-10) Stop: 02/12/24 03:51 Piperacillin Sod/Tazobactam (Sod 3.375 gm/ Sodium Chloride) 50 mls @ 100 mls/hr IV Q6H [facility] Last Infusion: 02/12/24 02:00 Dose: Infused Clindamycin Phosphate (Cleocin) 900 mg in 50 mls @ 50 mls/hr IV Q8H [facility] Last Admin: 02/12/24 02:06 Dose: 50 mls/hr Potassium Chloride/Sodium Chloride (Kcl 20 Meq In 0.9 % Sodium Chl) 20 meq in 1,000 mls @ 125 mls/hr IVCONT .Q8H [facility] Melatonin (Melatonin 3 Mg Tablet) 6 mg PO BEDTIME PRN PRN Reason: Insomnia Morphine Sulfate (Morphine Sulfate 4 Mg/Ml Cartridge) 2 mg IVPUSH Q4H PRN; Protocol PRN Reason: Pain, Severe (Pain Scale 7-10) Naloxone HCl (Naloxone Hcl 0.4 Mg/Ml Vial) 0.04 mg IVPUSH Q5M PRN PRN Reason: Excessive sedation or RR < 8 Ondansetron HCl (Ondansetron Hcl 4 Mg/2 Ml Vial) 4 mg IVPUSH Q8H PRN PRN Reason: Nausea and Vomiting Oxycodone HCl (Oxycodone Hcl Immed Release 5 Mg Tablet) 5 mg PO Q4H PRN PRN Reason: Pain, Severe (Pain Scale5-7 Pantoprazole Sodium (Pantoprazole Sodium 40 Mg/10 Ml Vial) 40 mg IVPUSH DAILY@0630 [facility] Pharmacy Consult (Consult Rx Vancomycin Dosing) 1 each MISCELLANE DAILY PRN PRN Reason: Consult order Sodium Chloride (0.9 % Sodium Chloride Flush 3 Ml Syringe) 3 ml IVFLUSH QSHIFT [facility] Last Admin: 02/12/24 01:14 Dose: 3 ml Home Medications ?Medication ?Instructions ?Recorded ?Confirmed ?Last Taken ?Type ibuprofen 200 mg tablet 400 mg PO Q8H PRN Fever/Pain 02/11/24 02/11/24 02/10/24 21:00 History Physical Exam 2 Vital Signs and Narrative: Vital Signs: Last Vital Signs Temp 98.9 F 02/12/24 00:00 Pulse 106 H 02/12/24 00:00 Resp 20 02/12/24 00:00 BP 130/65 02/12/24 00:00 Pulse Ox 92 02/12/24 00:00 O2 Del Method Nasal Cannula 02/12/24 00:00 O2 Flow Rate 2 02/12/24 00:00 BMI result Body Mass Index 21.5 Constitutional - Awake and Alert, No apparent distress. Pleasant. Cooperative. HEENT - PERRL, EOMI Heart - S1S2, RRR, No murmurs Lungs - Normal lung expansion, Normal respiratory effort, No respiratory distress, CTA bilaterally Abdomen - NT / ND; +BS; No rebound or guarding - Deferred. Extremities - lower extremities are atrophic. Musculoskeletal - Normal inspection, normal ROM Skin - Warm/Dry Neurological - Alert & oriented x3. Lower extremities paralysis Psychological - Appropriate affect Results Labs 02/11/24 17:06 02/12/24 01:03 Labs: Laboratory Results - last 24 hr 02/11/24 02/11/24 02/11/24 17:05 17:06 18:24 MCV 85.4 MCH 31.1 MCHC 36.5 H RDW 13.6 Plt Count 342 MPV 9.2 L Immature Gran % (Auto) Cancelled Neut % (Auto) Cancelled Lymph % (Auto) Cancelled [place] % (Auto) Cancelled Eos % (Auto) Cancelled Baso % (Auto) Cancelled Lymph # (Auto) Cancelled [place] # (Auto) Cancelled Eos # (Auto) Cancelled Baso # (Auto) Cancelled Abs Immat Gran (auto) Cancelled Absolute Neuts (auto) Cancelled Absolute Nucleated RBC 0.000 Nucleated RBC % (auto) 0.0 Neutrophils % (Manual) 66 Band Neutrophils % 16 H Lymphocytes % (Manual) 6 L Monocytes % (Manual) 11 Basophils % (Manual) 1 Abs Neuts (Manual) 20.2 H Lymphocytes # (Manual) 1.5 Monocytes # (Manual) 2.7 H Basophils # (Manual) 0.2 Platelet Estimate NORMAL Plt Morphology Comment NORMAL RBC Morphology NORMAL Smear Tech's Comments MANUAL DIFF ESR 85 H PT 14.1 H INR 1.2 H APTT 28.5 Anion Gap 15 Estim Creat Clear Calc 143.2 Estimated GFR > 60 Random Glucose 93 Lactic Acid 1.5 Calcium 9.4 Magnesium 2.2 Total Bilirubin 1.5 H Direct Bilirubin 0.8 H AST 32 ALT 26 Alkaline Phosphatase 180 H C-Reactive Protein 43.14 H Total Protein 7.7 Albumin 3.6 Urine Color Urine Appearance Urine pH Ur Specific [place] Urine Protein Urine Glucose (UA) Urine Ketones Urine Blood Urine Nitrite Ur Leukocyte Esterase Urine RBC Urine WBC Ur Squamous Epith Cells Urine Bacteria Hyaline Casts Blood Type Antibody Screen 02/11/24 02/11/24 02/12/24 19:12 19:14 01:03 MCV MCH MCHC RDW Plt Count MPV Immature Gran % (Auto) Neut % (Auto) Lymph % (Auto) [place] % (Auto) Eos % (Auto) Baso % (Auto) Lymph # (Auto) [place] # (Auto) Eos # (Auto) Baso # (Auto) Abs Immat Gran (auto) Absolute Neuts (auto) Absolute Nucleated RBC Nucleated RBC % (auto) Neutrophils % (Manual) Band Neutrophils % Lymphocytes % (Manual) Monocytes % (Manual) Basophils % (Manual) Abs Neuts (Manual) Lymphocytes # (Manual) Monocytes # (Manual) Basophils # (Manual) Platelet Estimate Plt Morphology Comment RBC Morphology Smear Tech's Comments ESR PT INR APTT Anion Gap Estim Creat Clear Calc Estimated GFR Random Glucose Lactic Acid Calcium Magnesium 1.9 Total Bilirubin Direct Bilirubin AST ALT Alkaline Phosphatase C-Reactive Protein Total Protein Albumin Urine Color Dark Yellow Urine Appearance Clear Urine pH 5.5 Ur Specific [place] >= 1.030 H Urine Protein 30 (1+) H Urine Glucose (UA) Negative Urine Ketones >=160 Urine Blood Moderate (2+) H Urine Nitrite Negative Ur Leukocyte Esterase Trace H Urine RBC >20 H Urine WBC 0-5 Ur Squamous Epith Cells 3-5 Urine Bacteria None Seen Hyaline Casts 3-5 Blood Type AB Positive Antibody Screen NEGATIVE Imaging Radiologist's Impressions: Impressions Scrotum Ultrasound 02/11/24 16:48 IMPRESSION: No focal testicular abnormality. Color signal and vascular Doppler spectra were obtained bilaterally. 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 This critical test result was discussed with Dr. Perez at 2022 on 02/11/[address] Adam Dumas at the time of discovery. It was ascertained that the content and the importance of the findings was understood at the time of the direct communication. Electronically signed by: Adam Dumas DO 02/11/2024 08:32 PM EDT RP Assessment and Plan (1) Necrotizing fasciitis: Status: Acute (2) SIRS (systemic inflammatory response syndrome): Status: Acute (3) Aspiration into airway: Qualifiers: Encounter type: initial encounter Qualified Code(s): T17.908A - Unspecified foreign body in respiratory tract, part unspecified causing other injury, initial encounter Status: Acute Plan Brad Sanchez is a 28 y/o man with PMHx significant for spina bifida presents with: * SIRS, no severe sepsis secondary to necrotizing fasciitis. s/p debridement. * Aspiration. Recommendations: * Supplemental oxygen as needed, keep O2 sats > 90% * Clindamycin 900 mg IV every 8 hours * Zosyn 3.375 g IV every 6 hours * Vancomycin IV, pharmacy to dose * Check CXR in the morning. * IV fluids.
[2024-02-12] MEDS: KCl 20 mEq in 0.9 % Sodium ChL 20 MEQ/1,000 ML IV.SOLN 125 MEQ IVCONT (03:24)
[2024-02-12 05:54] LABS: Hematocrit 34.8 % (42.0-52.0); Hemoglobin 12.1 g/dl (14.0-18.0); Mean Corpuscular HGB Conc 34.8 g/dl (31.0-36.0); Mean Corpuscular Hemoglobin 30.8 pg (27.0-33.0); Mean Corpuscular Volume 88.5 fL (80.0-98.0); Mean Platelet Volume 9.5 fL (9.4-12.4); Platelet Count 308 X10*3/uL (160-400); Red Blood Count 3.93 X10*6/uL (4.60-5.80); Red Cell Distribution Width 14.3 % (11.0-16.0)
[2024-02-12 05:55] LABS: WBC ABN SCTR FOR CBC 1; White Blood Count 26.2 X10*3/uL (4.8-10.8)
[2024-02-12 06:20] LABS: Alanine Aminotransferase 21 U/L (0-40); Albumin Level 2.8 g/dL (3.5-5.0); Alkaline Phosphatase 134 U/L (39-117); Anion Gap 15 (12-20); Aspartate Amino Transferase 28 U/L (5-37); Bilirubin Total 1.3 mg/dL (0.0-1.0); Blood Urea Nitrogen 6 mg/dL (9-16); Carbon Dioxide 20 mmol/L (22-29); Chloride 107 mmol/L (96-108); Creatinine Clr Calc Pharmacy 158.9; Estimated Glomerular Filt Rate > 60; Glucose Random 85 mg/dL (60-115); Potassium 3.3 mmol/L (3.3-5.1); Sodium 139 mmol/L (135-145); Total Protein 6.2 g/dL (6.5-8.0)
[2024-02-12] MEDS: Pantoprazole Sodium 40 MG/10 ML VIAL IVPUSH (06:22)
[2024-02-12] MEDS: Acetaminophen 325 MG TABLET 650 MG PO (06:22)
[2024-02-12 06:48] LABS: Atypical Lymphs Percent Manual 4 % (0-6); Band Neutrophils Percent 15 % (3-5); Lymphocytes Absolute Manual 4.2 X10*3/uL (1.2-4.9); Lymphocytes Percent Manual 16 % (20-40); Monocytes Absolute Manual 1.3 X10*3/uL (0.1-1.2); Monocytes Percent Manual 5 % (2-11); Neutrophils Absolute Manual 19.7 X10*3/uL (2.0-8.3); Neutrophils Percent Manual 60 % (45-73)
[2024-02-12 06:52] LABS: Dohle Bodies PRESENT; Large Platelet PRESENT; Macrocytosis 1+ (5-14) /OIF; Platelet Estimate NORMAL (NORMAL); Platelet Morphology Comment NOTED; RBC Morphology NOTED; Smudge Cells PRESENT
--- NOTE | 2024-02-12 07:11 | PHA.PROG ---
Admission Date/Time: February 11, 2024 21:26 Indication: SKIN Weight in k.699 kg Adjusted body weight in Kg: Paradox body weight in Kg: Obesity Dosing Indication % IBW: Serum Creatinine - Last 168 Hours 02/11/24 02/12/24 17:06 05:30 Creatinine 0.61 0.55 Estimated CrCl and GFR - Last 168 Hours 02/11/24 02/12/24 17:06 05:30 Estim Creat Clear Calc 143.2 158.9 Estimated GFR > 60 > 60 Vancomycin Loading Dose: 1500 MG Current Vancomycin Dosing Regimen: 1250 MG Q12H Vancomycin Monitoring using AUC goal of 400 - 600 range with trough as surrogate marker: [id number]=[id number] TROUGH=11.9 Date and Time for next Vancomycin Level to be drawn: 02/13/24 @1800 Pharmacist Comments on Vancomycin Plan: Vancomycin dosing will take advantage of [employer] as a clinical decision support tool that uses Bayesian modeling to calculate individual patient's pharmacokinetic parameters and forecast the patient's drug concentration time course with the target goal AUC 24 range of 400 - 600 mg/L/hr.
--- NOTE | 2024-02-12 09:08 | P.PNGS_ITS ---
Subjective Subjective Date of Service: 02/12/24 <Chica Hinkle PA-C - Last Filed: 02/12/24 09:16> 02/12/24 <Phuc Sorto MD - Last Filed: 02/12/24 11:18> Interval history: Feels better this morning. <JULIO Alva Last Filed: 02/12/24 09:16> Physical Exam 2 Vital Signs: Vital Signs: Last Vital Signs Temp 99.5 F 02/12/24 08:00 Pulse 107 H 02/12/24 08:00 Resp 22 H 02/12/24 08:00 BP 134/80 02/12/24 08:00 Pulse Ox 91 L 02/12/24 08:00 O2 Del Method Room Air 02/12/24 08:00 O2 Flow Rate 2 02/12/24 00:00 BMI result Body Mass Index 21.5 <JULIO Alva Last Filed: 02/12/24 09:16> Const: General: comfortable, no acute distress and alert <Chica Hinkle PA-C - Last Filed: 02/12/24 09:16> Orientation/consciousness: patient oriented x3 <JULIO Alva Last Filed: 02/12/24 09:16> Resp: Effort & Inspection: normal respiratory effort, no cough, not tachypneic and no use of accessory muscles <Chica Hinkle PA-C - Last Filed: 02/12/24 09:16> Skin: Other: left buttock/perineum and scrotal debridement sites are generally clean appearing, no current necrosis, no purulence, no significant surrounding erythema or induration, significant edema of scrotum but soft <Chica Hinkle PA-C - Last Filed: 02/12/24 09:16> Neuro: General: patient oriented x3 <JULIO Alva Last Filed: 02/12/24 09:16> Objective Data Active Medications Acetaminophen (Acetaminophen 325 Mg Tablet) 650 mg PO Q6H PRN PRN Reason: Pain, Mild (Pain Scale 1-3), fever or headache Last Admin: 02/12/24 06:22 Dose: 650 mg Documented By: BENJAMIN Heparin Sodium (Porcine) (Heparin Sodium,Porcine 5,000 Unit/Ml Vial) 5,000 unit SUBCUT Q12H [facility] Last Admin: 02/12/24 01:13 Dose: 5,000 unit Documented By: BENJAMIN Piperacillin Sod/Tazobactam (Sod 3.375 gm/ Sodium Chloride) 50 mls @ 100 mls/hr IV Q6H [facility] Last Infusion: 02/12/24 07:22 Dose: Infused Documented By: WATSON Clindamycin Phosphate (Cleocin) 900 mg in 50 mls @ 50 mls/hr IV Q8H [facility] Last Infusion: 02/12/24 03:24 Dose: Infused Documented By: BENJAMIN Potassium Chloride/Sodium Chloride (Kcl 20 Meq In 0.9 % Sodium Chl) 20 meq in 1,000 mls @ 125 mls/hr IVCONT .Q8H [facility] Last Admin: 02/12/24 03:24 Dose: 125 mls/hr Documented By: BENJAMIN Vancomycin HCl 1,250 mg/ (Sodium Chloride) 250 mls @ 166.667 mls/hr IV Q12H [facility] Melatonin (Melatonin 3 Mg Tablet) 6 mg PO BEDTIME PRN PRN Reason: Insomnia Morphine Sulfate (Morphine Sulfate 4 Mg/Ml Cartridge) 2 mg IVPUSH Q4H PRN; Protocol PRN Reason: Pain, Severe (Pain Scale 7-10) Naloxone HCl (Naloxone Hcl 0.4 Mg/Ml Vial) 0.04 mg IVPUSH Q5M PRN PRN Reason: Excessive sedation or RR < 8 Ondansetron HCl (Ondansetron Hcl 4 Mg/2 Ml Vial) 4 mg IVPUSH Q8H PRN PRN Reason: Nausea and Vomiting Oxycodone HCl (Oxycodone Hcl Immed Release 5 Mg Tablet) 5 mg PO Q4H PRN PRN Reason: Pain, Severe (Pain Scale5-7 Pantoprazole Sodium (Pantoprazole Sodium 40 Mg/10 Ml Vial) 40 mg IVPUSH DAILY@0630 [facility] Last Admin: 02/12/24 06:22 Dose: 40 mg Documented By: BENJAMIN Pharmacy Consult (Consult Rx Vancomycin Dosing) 1 each MISCELLANE DAILY PRN PRN Reason: Consult order Sodium Chloride (0.9 % Sodium Chloride Flush 3 Ml Syringe) 3 ml IVFLUSH QSHIFT [facility] Last Admin: 02/12/24 01:14 Dose: 3 ml Documented By: BENJAMIN Sodium Hypochlorite (Sodium Hypochlorite 0.125% 473 Ml Solution) 1 appl TOPICAL DAILY [facility] <Chica Hinkle PA-C - Last Filed: 02/12/24 09:16> Labs CBC & Chem 7: 02/12/24 05:30 02/12/24 05:30 <Chica Hinkle PA-C - Last Filed: 02/12/24 09:16> Labs: Laboratory Results - last 24 hr 02/11/24 02/11/24 02/11/24 17:05 17:06 18:24 MCV 85.4 MCH 31.1 MCHC 36.5 H RDW 13.6 Plt Count 342 MPV 9.2 L Immature Gran % (Auto) Cancelled Neut % (Auto) Cancelled Lymph % (Auto) Cancelled Rowan % (Auto) Cancelled Eos % (Auto) Cancelled Baso % (Auto) Cancelled Lymph # (Auto) Cancelled Rowan # (Auto) Cancelled Eos # (Auto) Cancelled Baso # (Auto) Cancelled Abs Immat Gran (auto) Cancelled Absolute Neuts (auto) Cancelled Absolute Nucleated RBC 0.000 Nucleated RBC % (auto) 0.0 Neutrophils % (Manual) 66 Band Neutrophils % 16 H Lymphocytes % (Manual) 6 L Atypical Lymphs % (Man) Monocytes % (Manual) 11 Basophils % (Manual) 1 Abs Neuts (Manual) 20.2 H Lymphocytes # (Manual) 1.5 Atyp Lymphs # (Manual) Monocytes # (Manual) 2.7 H Basophils # (Manual) 0.2 Smudge Cells Dohle Bodies Platelet Estimate NORMAL Large Platelets Plt Morphology Comment NORMAL RBC Morphology NORMAL Macrocytosis Smear Tech's Comments MANUAL DIFF ESR 85 H PT 14.1 H INR 1.2 H APTT 28.5 Anion Gap 15 Estim Creat Clear Calc 143.2 Estimated GFR > 60 Random Glucose 93 Lactic Acid 1.5 Calcium 9.4 Magnesium 2.2 Total Bilirubin 1.5 H Direct Bilirubin 0.8 H AST 32 ALT 26 Alkaline Phosphatase 180 H C-Reactive Protein 43.14 H Total Protein 7.7 Albumin 3.6 Urine Color Urine Appearance Urine pH Ur Specific Sharon Urine Protein Urine Glucose (UA) Urine Ketones Urine Blood Urine Nitrite Ur Leukocyte Esterase Urine RBC Urine WBC Ur Squamous Epith Cells Urine Bacteria Hyaline Casts Blood Type Antibody Screen 02/11/24 02/11/24 02/12/24 19:12 19:14 01:03 MCV MCH MCHC RDW Plt Count MPV Immature Gran % (Auto) Neut % (Auto) Lymph % (Auto) Rowan % (Auto) Eos % (Auto) Baso % (Auto) Lymph # (Auto) Rowan # (Auto) Eos # (Auto) Baso # (Auto) Abs Immat Gran (auto) Absolute Neuts (auto) Absolute Nucleated RBC Nucleated RBC % (auto) Neutrophils % (Manual) Band Neutrophils % Lymphocytes % (Manual) Atypical Lymphs % (Man) Monocytes % (Manual) Basophils % (Manual) Abs Neuts (Manual) Lymphocytes # (Manual) Atyp Lymphs # (Manual) Monocytes # (Manual) Basophils # (Manual) Smudge Cells Dohle Bodies Platelet Estimate Large Platelets Plt Morphology Comment RBC Morphology Macrocytosis Smear Tech's Comments ESR PT INR APTT Anion Gap Estim Creat Clear Calc Estimated GFR Random Glucose Lactic Acid Calcium Magnesium 1.9 Total Bilirubin Direct Bilirubin AST ALT Alkaline Phosphatase C-Reactive Protein Total Protein Albumin Urine Color Dark Yellow Urine Appearance Clear Urine pH 5.5 Ur Specific Sharon >= 1.030 H Urine Protein 30 (1+) H Urine Glucose (UA) Negative Urine Ketones >=160 Urine Blood Moderate (2+) H Urine Nitrite Negative Ur Leukocyte Esterase Trace H Urine RBC >20 H Urine WBC 0-5 Ur Squamous Epith Cells 3-5 Urine Bacteria None Seen Hyaline Casts 3-5 Blood Type AB Positive Antibody Screen NEGATIVE 02/12/24 05:30 MCV 88.5 MCH 30.8 MCHC 34.8 RDW 14.3 Plt Count 308 MPV 9.5 Immature Gran % (Auto) Cancelled Neut % (Auto) Cancelled Lymph % (Auto) Cancelled Rowan % (Auto) Cancelled Eos % (Auto) Cancelled Baso % (Auto) Cancelled Lymph # (Auto) Cancelled Rowan # (Auto) Cancelled Eos # (Auto) Cancelled Baso # (Auto) Cancelled Abs Immat Gran (auto) Cancelled Absolute Neuts (auto) Cancelled Absolute Nucleated RBC 0.000 Nucleated RBC % (auto) 0.0 Neutrophils % (Manual) 60 Band Neutrophils % 15 H Lymphocytes % (Manual) 16 L Atypical Lymphs % (Man) 4 Monocytes % (Manual) 5 Basophils % (Manual) Abs Neuts (Manual) 19.7 H Lymphocytes # (Manual) 4.2 Atyp Lymphs # (Manual) 1.0 Monocytes # (Manual) 1.3 H Basophils # (Manual) Smudge Cells PRESENT Dohle Bodies PRESENT Platelet Estimate NORMAL Large Platelets PRESENT Plt Morphology Comment NOTED RBC Morphology NOTED Macrocytosis 1+ (5-14) Smear Tech's Comments ESR PT INR APTT Anion Gap 15 Estim Creat Clear Calc 158.9 Estimated GFR > 60 Random Glucose 85 Lactic Acid Calcium 8.0 L D Magnesium Total Bilirubin 1.3 H Direct Bilirubin AST 28 ALT 21 Alkaline Phosphatase 134 H C-Reactive Protein Total Protein 6.2 L Albumin 2.8 L Urine Color Urine Appearance Urine pH Ur Specific Sharon Urine Protein Urine Glucose (UA) Urine Ketones Urine Blood Urine Nitrite Ur Leukocyte Esterase Urine RBC Urine WBC Ur Squamous Epith Cells Urine Bacteria Hyaline Casts Blood Type Antibody Screen <Chica Hinkle PA-C - Last Filed: 02/12/24 09:16> Procedures Date of Service Date of Service: 02/12/24 <Chica Hinkle PA-C - Last Filed: 02/12/24 09:16> 02/12/24 <Phuc Sorto MD - Last Filed: 02/12/24 11:18> Progress Note: A&P Assessment and plan (1) Necrotizing fasciitis: Status: Acute <Chica Hinkle PA-C - Last Filed: 02/12/24 09:16> Assessment and Plan: dressings changed debrided wounds looks clean, viable tissue, no ongoing gangrene continue wound care pain mtg poss. infiltrates on the right, no respiratory complaints for now Seen and examined independently <Phuc Sorto MD - Last Filed: 02/12/24 11:18> (2) Aspiration into airway: Status: Acute <Chica Hinkle PA-C - Last Filed: 02/12/24 09:16> Assessment and Plan: POD #1 s/p debridement of necrotizing fasciitis left buttock perineal area. Wounds clean appearing this morning upon dressing change, no significant necrotic tissue. Cont daily wound care with wet to dry packing followed by fluffs and abd dressing, mesh underwear. Change outer dressing if becomes soiled. Currently no further surgical intervention needed. Pain control as needed. Concern for aspiration during procedure- CXR this AM shows possible R sided infiltrate. Cont IV abx for necrotizing fasciitis and presumed aspiration PNA. Hospitalists following. Repeat labs in AM. <Chica Hinkle PA-C - Last Filed: 02/12/24 09:16> Time Spent With Patient Time: Total time managing care of this patient today ____ minutes. <Chica Hinkle PA-C - Last Filed: 02/12/24 09:16> Quality Stroke Does the patient have a stroke diagnosis?: No <Chica Hinkle PA-C - Last Filed: 02/12/24 09:16> VTE Prior VTE?: No <Chica Hinkle PA-C - Last Filed: 02/12/24 09:16> VTE Risk Level:: Surgical - moderate <JULIO Alva Last Filed: 02/12/24 09:16> VTE Device Contraindication: Treatment Not Tolerated <Chica Hinkle PA-C - Last Filed: 02/12/24 09:16> VTE Drug Contraindication: N/A - Med Ordered <JULIO Alva Last Filed: 02/12/24 09:16>
[2024-02-12] MEDS: vancomycin HCL 1,250 MG in 0.9 % Sodium Chloride 250 ML 166.67 MG IV ×2 (09:35→21:37)
[2024-02-12] MEDS: oxyCODONE HCl Immed Release 5 MG TABLET PO ×2 (11:49→20:15)
--- NOTE | 2024-02-12 12:50 | MHC.CM.PN ---
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 Patient states that he lives with others. His mother and grandmother care for him (without pay). He requires assist with ADLS. Straight caths at home. A lin catheter has been inserted [place] [facility]. Patient stated that he wears briefs too. He has been active with [facility]ound [facility] in the past. Wound clinic DX Pressure ulcers. Per mothers report he has not had a pressure ulcer in 7 months. He reports that [facility] has provided services in the past as well. They are 1st choice. A referral has been sent. Another referral has been sent to [facility]. Patients caregivers are in need of a payer source. A HCP has been documented and scanned into EMR. DP home resume of family support [facility] wound clinic, [facility] and [facility] referral. Patients aunt will provide transport home. CM will follow for discharge.
[2024-02-12] MEDS: KCl 20 mEq in 0.9 % Sodium ChL 20 MEQ/1,000 ML IV.SOLN IVCONT ×2 (13:48→21:36)
--- NOTE | 2024-02-12 16:02 | PM.EVENT ---
Event Note Date of Service: 02/12/24 Event Note: Consult done Chest x-ray showed Patchy opacities in the right lung, most notably in the midline upper lobe, concerning for aspiration or pneumonia. Diagnosis sepsis due to aspiration pneumonia/necrotizing fasciitis Continue current antibiotics including clindamycin, IV Zosyn and IV vancomycin started on 02/11 Follow clinical course. Time Spent With Patient Time: Total time managing care of this patient today ____ minutes.
[2024-02-13] VITALS (7 sets, daily range): BP systolic 128–148; BP diastolic 77–100; PULSE 83–94; RESP 16–20; TEMP 36.6–37.7; O2SAT 93–96
[2024-02-13] MEDS: Piperacillin Sodium/Tazobactam 3.375 GM in 0.9 % Sodium Chloride 50 ML IV ×4 (01:35→17:46)
[2024-02-13] MEDS: Clindamycin Phosphate/D5W 900 MG/50 ML PIGGYBACK 50 MG IV ×3 (01:35→18:27)
[2024-02-13] MEDS: Pantoprazole Sodium 40 MG/10 ML VIAL IVPUSH (05:58)
[2024-02-13] MEDS: KCl 20 mEq in 0.9 % Sodium ChL 20 MEQ/1,000 ML IV.SOLN IVCONT (05:59)
[2024-02-13 07:44] LABS: Creatinine Clr Calc Pharmacy 107.9; Estimated Glomerular Filt Rate > 60
[2024-02-13] MEDS: vancomycin HCL 1,250 MG in 0.9 % Sodium Chloride 250 ML 166.67 MG IV ×2 (07:53→20:02)
[2024-02-13 09:00] LABS: Hematocrit 31.1 % (42.0-52.0); Hemoglobin 11.2 g/dl (14.0-18.0); Mean Corpuscular Hemoglobin 31.4 pg (27.0-33.0); Mean Corpuscular Volume 87.1 fL (80.0-98.0); Mean Platelet Volume 9.2 fL (9.4-12.4); Platelet Count 402 X10*3/uL (160-400); Red Blood Count 3.57 X10*6/uL (4.60-5.80); Red Cell Distribution Width 14.4 % (11.0-16.0); White Blood Count 17.5 X10*3/uL (4.8-10.8)
[2024-02-13 09:09] LABS: Potassium 3.4 mmol/L (3.3-5.1)
--- NOTE | 2024-02-13 09:46 | P.PNGS_ITS ---
Subjective Subjective Date of Service: 02/13/24 Interval history: He denies complaints Comfortable No fever Physical Exam 2 Vital Signs: Vital Signs: Last Vital Signs Temp 98.0 F 02/13/24 08:00 Pulse 83 02/13/24 08:00 Resp 18 02/13/24 08:00 BP 128/83 02/13/24 08:00 Pulse Ox 95 02/13/24 08:00 O2 Del Method Room Air 02/13/24 08:00 O2 Flow Rate 2 02/12/24 00:00 BMI result Body Mass Index 21.5 Const: General: comfortable and no acute distress Resp: Effort & Inspection: normal respiratory effort Cardio: Rate: regular rate Back/Spine/Pelvis: Other: Open wounds on the perianal area and buttock clean, no ongoing gangrene, no pus Objective Data Active Medications Acetaminophen (Acetaminophen 325 Mg Tablet) 650 mg PO Q6H PRN PRN Reason: Pain, Mild (Pain Scale 1-3), fever or headache Last Admin: 02/12/24 06:22 Dose: 650 mg Documented By: BENJAMIN Heparin Sodium (Porcine) (Heparin Sodium,Porcine 5,000 Unit/Ml Vial) 5,000 unit SUBCUT Q12H [facility] Last Admin: 02/12/24 23:51 Dose: 5,000 unit Documented By: SUSANNA Piperacillin Sod/Tazobactam (Sod 3.375 gm/ Sodium Chloride) 50 mls @ 100 mls/hr IV Q6H [facility] Last Infusion: 02/13/24 07:28 Dose: Infused Documented By: SUSANNA Clindamycin Phosphate (Cleocin) 900 mg in 50 mls @ 50 mls/hr IV Q8H [facility] Last Infusion: 02/13/24 02:54 Dose: Infused Documented By: SUSANNA Potassium Chloride/Sodium Chloride (Kcl 20 Meq In 0.9 % Sodium Chl) 20 meq in 1,000 mls @ 125 mls/hr IVCONT .Q8H [facility] Last Infusion: 02/13/24 08:00 Dose: 125 mls/hr Documented By: EDIN Vancomycin HCl 1,250 mg/ (Sodium Chloride) 250 mls @ 166.667 mls/hr IV Q12H [facility] Last Admin: 02/13/24 07:53 Dose: 166.67 mls/hr Documented By: EDIN Melatonin (Melatonin 3 Mg Tablet) 6 mg PO BEDTIME PRN PRN Reason: Insomnia Morphine Sulfate (Morphine Sulfate 4 Mg/Ml Cartridge) 2 mg IVPUSH Q4H PRN; Protocol PRN Reason: Pain, Severe (Pain Scale 7-10) Naloxone HCl (Naloxone Hcl 0.4 Mg/Ml Vial) 0.04 mg IVPUSH Q5M PRN PRN Reason: Excessive sedation or RR < 8 Ondansetron HCl (Ondansetron Hcl 4 Mg/2 Ml Vial) 4 mg IVPUSH Q8H PRN PRN Reason: Nausea and Vomiting Oxycodone HCl (Oxycodone Hcl Immed Release 5 Mg Tablet) 5 mg PO Q4H PRN PRN Reason: Pain, Severe (Pain Scale5-7 Last Admin: 02/12/24 20:15 Dose: 5 mg Documented By: SUSANNA Pantoprazole Sodium (Pantoprazole Sodium 40 Mg/10 Ml Vial) 40 mg IVPUSH DAILY@0630 [facility] Last Admin: 02/13/24 05:58 Dose: 40 mg Documented By: SUSANNA Pharmacy Consult (Consult Rx Vancomycin Dosing) 1 each MISCELLANE DAILY PRN PRN Reason: Consult order Sodium Chloride (0.9 % Sodium Chloride Flush 3 Ml Syringe) 3 ml IVFLUSH QSHIFT [facility] Last Admin: 02/12/24 23:53 Dose: 3 ml Documented By: SUSANNA Sodium Hypochlorite (Sodium Hypochlorite 0.125% 473 Ml Solution) 1 appl TOPICAL DAILY [facility] Last Admin: 02/12/24 10:07 Dose: Not Given Documented By: WATSON Non-Admin Reason: Med Not Available Labs 02/13/24 08:44 02/13/24 08:44 Labs: Laboratory Results - last 24 hr 02/13/24 02/13/24 07:00 08:44 MCV 87.1 MCH 31.4 MCHC 36.0 RDW 14.4 Plt Count 402 H D MPV 9.2 L Absolute Nucleated RBC 0.000 Nucleated RBC % (auto) 0.0 Estim Creat Clear Calc 107.9 Estimated GFR > 60 Microbiology Microbiology Results: Microbiology 02/11/24 23:37 Gram Stain - Final Perineum Routine Culture - Preliminary Culture in progress. 02/11/24 18:21 Blood Culture - Preliminary Blood - Venous No growth after 24 hours. 02/11/24 18:14 Blood Culture - Preliminary Blood - Venous No growth after 24 hours. Procedures Date of Service Date of Service: 02/13/24 Progress Note: A&P Assessment and plan (1) Necrotizing fasciitis: Status: Acute Assessment and Plan: I have changed his packing and dressings Open wounds healing well I have advised him to change positions frequently avoid ulcers Antibiotics for now Hospitalist seeing the patient for pneumonia Patient doing well otherwise with regards to respiratory function We will need visiting nurse on discharge Time Spent With Patient Time: Total time managing care of this patient today ____ minutes. Quality Stroke Does the patient have a stroke diagnosis?: No VTE Prior VTE?: No VTE Risk Level:: Surgical - moderate VTE Device Contraindication: Treatment Not Tolerated VTE Drug Contraindication: N/A - Med Ordered
[2024-02-13] MEDS: 0.9 % Sodium Chloride Flush 3 ML SYRINGE IVFLUSH ×2 (10:43→15:44)
[2024-02-13] MEDS: Heparin Sodium,Porcine 5,000 UNIT/ML VIAL 5000 UNIT SUBCUT (12:23)
--- NOTE | 2024-02-13 14:52 | P.PNIM_ITS ---
Subjective Subjective Date of Service: 02/13/24 Interval History: Being followed for aspiration pneumonia/leukocytosis and left buttock wounds. Patient complaining of cough denies shortness of breath denies chest pain, no fevers, no chills. tolerating diet. no nausea, no vomiting, no abdominal pain, no choking, or coughing with food. Review of Systems All other symptoms reviewed and negative. Physical Exam 2 Vital Signs: Vital Signs: Last Vital Signs Temp 97.8 F 02/13/24 11:11 Pulse 91 02/13/24 11:11 Resp 18 02/13/24 11:11 BP 139/87 02/13/24 11:11 Pulse Ox 95 02/13/24 11:11 O2 Del Method Room Air 02/13/24 11:11 O2 Flow Rate 2 02/12/24 00:00 BMI result Body Mass Index 21.5 Const: Other: General resting comfortably in no acute distress. Neck no JVD. CVS regular rate rhythm, Respiratory lungs clear to auscultation, no respiratory distress, no wheeze, no rhonchi. Gastrointestinal abdomen soft, non tender, bowel sounds audible. Extremities no edema, Left buttock and perineal wound dressing in place Neuro alert oriented x3, clear speech. Appropriate affect Objective Data Active Medications Acetaminophen (Acetaminophen 325 Mg Tablet) 650 mg PO Q6H PRN PRN Reason: Pain, Mild (Pain Scale 1-3), fever or headache Last Admin: 02/12/24 06:22 Dose: 650 mg Documented By: BENJAMIN Heparin Sodium (Porcine) (Heparin Sodium,Porcine 5,000 Unit/Ml Vial) 5,000 unit SUBCUT Q12H [facility] Last Admin: 02/13/24 12:23 Dose: 5,000 unit Documented By: EDIN Piperacillin Sod/Tazobactam (Sod 3.375 gm/ Sodium Chloride) 50 mls @ 100 mls/hr IV Q6H [facility] Last Infusion: 02/13/24 12:53 Dose: Infused Documented By: EDIN Vancomycin HCl 1,250 mg/ (Sodium Chloride) 250 mls @ 166.667 mls/hr IV Q12H [facility] Last Infusion: 02/13/24 09:23 Dose: Infused Documented By: EDIN Clindamycin Phosphate (Cleocin) 900 mg in 50 mls @ 50 mls/hr IV Q8H [facility] Last Infusion: 02/13/24 11:42 Dose: Infused Documented By: EDIN Melatonin (Melatonin 3 Mg Tablet) 6 mg PO BEDTIME PRN PRN Reason: Insomnia Morphine Sulfate (Morphine Sulfate 4 Mg/Ml Cartridge) 2 mg IVPUSH Q4H PRN; Protocol PRN Reason: Pain, Severe (Pain Scale 7-10) Naloxone HCl (Naloxone Hcl 0.4 Mg/Ml Vial) 0.04 mg IVPUSH Q5M PRN PRN Reason: Excessive sedation or RR < 8 Ondansetron HCl (Ondansetron Hcl 4 Mg/2 Ml Vial) 4 mg IVPUSH Q8H PRN PRN Reason: Nausea and Vomiting Oxycodone HCl (Oxycodone Hcl Immed Release 5 Mg Tablet) 5 mg PO Q4H PRN PRN Reason: Pain, Severe (Pain Scale5-7 Last Admin: 02/12/24 20:15 Dose: 5 mg Documented By: SUSANNA Pantoprazole Sodium (Pantoprazole Sodium 40 Mg/10 Ml Vial) 40 mg IVPUSH DAILY@0630 [facility] Last Admin: 02/13/24 05:58 Dose: 40 mg Documented By: SUSANNA Pharmacy Consult (Consult Rx Vancomycin Dosing) 1 each MISCELLANE DAILY PRN PRN Reason: Consult order Sodium Chloride (0.9 % Sodium Chloride Flush 3 Ml Syringe) 3 ml IVFLUSH QSHIFT [facility] Last Admin: 02/13/24 10:43 Dose: 3 ml Documented By: EDIN Sodium Hypochlorite (Sodium Hypochlorite 0.125% 473 Ml Solution) 1 appl TOPICAL DAILY [facility] Last Admin: 02/13/24 10:35 Dose: Not Given Documented By: EDIN Non-Admin Reason: dressing changed by surgeon Labs 02/13/24 08:44 02/13/24 08:44 Labs: Laboratory Results - last 24 hr 02/13/24 02/13/24 07:00 08:44 MCV 87.1 MCH 31.4 MCHC 36.0 RDW 14.4 Plt Count 402 H D MPV 9.2 L Absolute Nucleated RBC 0.000 Nucleated RBC % (auto) 0.0 Estim Creat Clear Calc 107.9 Estimated GFR > 60 Microbiology Microbiology Results: Microbiology 02/11/24 23:37 Gram Stain - Final Perineum Routine Culture - Preliminary Culture in progress. 02/11/24 18:21 Blood Culture - Preliminary Blood - Venous No growth after 24 hours. 02/11/24 18:14 Blood Culture - Preliminary Blood - Venous No growth after 24 hours. Assessment and Plan (1) Aspiration into airway: Status: Acute (2) Necrotizing fasciitis: Status: Acute Plan 28 y/o man with PMHx significant for spina bifida presents with : Sepsis due to Necrotizing fasciitis status post debridement WBC trending down, no fevers Follow CBC and clinical course Being followed by General surgery Aspiration pneumonia. Stable oxygenation, tolerating diet with no worsening cough, no fevers Chest x-ray showed patchy opacities right lung most notably in the midline upper lobe concerning for aspiration Blood cultures no growth on Clindamycin 900 mg IV every 8 hours,Zosyn 3.375 g IV every 6 hours and Vancomycin IV, for necrotizing fasciitis that cover aspiration pneumonia as well Change IV Protonix to by mouth Heparin for DVT prophylaxis Disposition as per General surgery. Quality Stroke Does the patient have a stroke diagnosis?: No VTE Prior VTE?: No VTE Risk Level:: Surgical - moderate VTE Device Contraindication: Treatment Not Tolerated VTE Drug Contraindication: N/A - Med Ordered
[2024-02-13 18:55] LABS: Vancomycin Random 15.4 mcg/mL (15-20)
--- NOTE | 2024-02-13 19:01 | HE.PHANOTE ---
RE NICOLETTEO SCR INCREASED TODAY FROM 0.55 ON 02/11 TO 0.81 ON 02/12. PT IS ALSO ON CONCURRENT ZOSYN. RANDOM LEVEL TODAY IS 15.4. ACCORDING TO INSIGHT WILL SEE AUC OF 562 AND TROUGH OF 15.5 WITH CURRENT DOSING BUT HE IS ALREADY SHOWING LEVELS GREATER THAN EXPECTED BY ABOUT 13%. TO ENSURE SAFE DOSING WILL RECHECK LEVEL AGAIN 02/13 AT 0600 AND CONTINUE TO MONITOR RENAL FUNCTION.
[2024-02-14] MEDS: Piperacillin Sodium/Tazobactam 3.375 GM in 0.9 % Sodium Chloride 50 ML IV ×4 (00:17→17:13)
[2024-02-14] MEDS: Heparin Sodium,Porcine 5,000 UNIT/ML VIAL 5000 UNIT SUBCUT ×2 (00:18→11:22)
[2024-02-14] MEDS: 0.9 % Sodium Chloride Flush 3 ML SYRINGE IVFLUSH (00:26)
[2024-02-14 03:12] VITALS: BP 143/90; PULSE 94; RESP 18; TEMP 36.9; O2SAT 96
[2024-02-14] MEDS: Clindamycin Phosphate/D5W 900 MG/50 ML PIGGYBACK 50 MG IV ×3 (03:14→18:24)
[2024-02-14] MEDS: Omeprazole 20 MG CAPSULE.DR PO (06:20)
[2024-02-14 07:05] LABS: Mean Corpuscular HGB Conc 35.5 g/dl (31.0-36.0); Mean Corpuscular Hemoglobin 30.6 pg (27.0-33.0); Mean Corpuscular Volume 86.1 fL (80.0-98.0); Mean Platelet Volume 9.1 fL (9.4-12.4); Platelet Count 472 X10*3/uL (160-400); Red Cell Distribution Width 14.3 % (11.0-16.0)
[2024-02-14 07:20] LABS: Creatinine Clr Calc Pharmacy 89.1; Estimated Glomerular Filt Rate > 60
[2024-02-14 07:22] LABS: Vancomycin Random 22.2 mcg/mL (15-20)
--- NOTE | 2024-02-14 07:40 | HE.PHANOTE ---
Vancomyin Patients Cr increased from 0.81 to 0.98. Urine output not collected today, but yesterday normal. Held this mornings dose due to trough of 22.2. Will recheck level and creatinine today at 1800 and potentially restart vancomycin at 1250 mg q24h.
[2024-02-14 08:00] VITALS: BP 127/89; PULSE 76; RESP 20; TEMP 36.6; O2SAT 96
--- NOTE | 2024-02-14 10:11 | P.PNGS_ITS ---
Subjective Subjective Date of Service: 02/14/24 Interval history: Denies new complaints No fever Physical Exam 2 Vital Signs: Vital Signs: Last Vital Signs Temp 97.9 F 02/14/24 08:00 Pulse 76 02/14/24 08:00 Resp 20 02/14/24 08:00 BP 127/89 02/14/24 08:00 Pulse Ox 96 02/14/24 08:00 O2 Del Method Room Air 02/14/24 08:00 O2 Flow Rate 2 02/12/24 00:00 BMI result Body Mass Index 21.5 Const: General: comfortable and no acute distress O rientation/consciousness: patient oriented x3 Resp: Effort & Inspection: normal respiratory effort Cardio: Rate: regular rate GI: Other: Rectal exam shows large open wound x2 on the left buttock area, smaller wound in the perianal area, all clean, no ongoing gangrene Palpation (GI): Soft to palpation Neuro: General: patient oriented x3 Objective Data Active Medications Acetaminophen (Acetaminophen 325 Mg Tablet) 650 mg PO Q6H PRN PRN Reason: Pain, Mild (Pain Scale 1-3), fever or headache Last Admin: 02/12/24 06:22 Dose: 650 mg Documented By: BENJAMIN Heparin Sodium (Porcine) (Heparin Sodium,Porcine 5,000 Unit/Ml Vial) 5,000 unit SUBCUT Q12H [facility] Last Admin: 02/14/24 00:18 Dose: 5,000 unit Documented By: ALLYSON Piperacillin Sod/Tazobactam (Sod 3.375 gm/ Sodium Chloride) 50 mls @ 100 mls/hr IV Q6H [facility] Last Infusion: 02/14/24 07:18 Dose: Infused Documented By: CONSTANCE Clindamycin Phosphate (Cleocin) 900 mg in 50 mls @ 50 mls/hr IV Q8H [facility] Last Infusion: 02/14/24 05:00 Dose: Infused Documented By: ALLYSON Vancomycin HCl 1,250 mg/ (Sodium Chloride) 250 mls @ 166.667 mls/hr IV Q24H [facility] Melatonin (Melatonin 3 Mg Tablet) 6 mg PO BEDTIME PRN PRN Reason: Insomnia Morphine Sulfate (Morphine Sulfate 4 Mg/Ml Cartridge) 2 mg IVPUSH Q4H PRN; Protocol PRN Reason: Pain, Severe (Pain Scale 7-10) Naloxone HCl (Naloxone Hcl 0.4 Mg/Ml Vial) 0.04 mg IVPUSH Q5M PRN PRN Reason: Excessive sedation or RR < 8 Omeprazole (Omeprazole 20 Mg Capsule.) 20 mg PO DAILY@0630 [facility] Last Admin: 02/14/24 06:20 Dose: 20 mg Documented By: ALLYSON Ondansetron HCl (Ondansetron Hcl 4 Mg/2 Ml Vial) 4 mg IVPUSH Q8H PRN PRN Reason: Nausea and Vomiting Oxycodone HCl (Oxycodone Hcl Immed Release 5 Mg Tablet) 5 mg PO Q4H PRN PRN Reason: Pain, Severe (Pain Scale5-7 Last Admin: 02/12/24 20:15 Dose: 5 mg Documented By: SUSANNA Pharmacy Consult (Consult Rx Vancomycin Dosing) 1 each MISCELLANE DAILY PRN PRN Reason: Consult order Sodium Chloride (0.9 % Sodium Chloride Flush 3 Ml Syringe) 3 ml IVFLUSH QSHIFT [facility] Last Admin: 02/14/24 09:28 Dose: Not Given Documented By: CONSTANCE Non-Admin Reason: IV Running Sodium Hypochlorite (Sodium Hypochlorite 0.125% 473 Ml Solution) 1 appl TOPICAL DAILY [facility] Last Admin: 02/14/24 09:25 Dose: Not Given Documented By: CONSTANCE Non-Admin Reason: dressing dry and intact Labs 02/14/24 06:26 02/14/24 06:26 Labs: Laboratory Results - last 24 hr 02/13/24 02/14/24 18:20 06:26 MCV 86.1 MCH 30.6 MCHC 35.5 RDW 14.3 Plt Count 472 H MPV 9.1 L Absolute Nucleated RBC 0.000 Nucleated RBC % (auto) 0.0 Estim Creat Clear Calc 89.1 Estimated GFR > 60 Random Vancomycin 15.4 22.2 H Microbiology Microbiology Results: Microbiology 02/11/24 23:37 Gram Stain - Final Perineum Routine Culture - Preliminary Gram negative stephanie 02/11/24 18:21 Blood Culture - Preliminary Blood - Venous No growth after 48 hours. 02/11/24 18:14 Blood Culture - Preliminary Blood - Venous No growth after 48 hours. Procedures Date of Service Date of Service: 02/14/24 Progress Note: A&P Assessment and plan (1) Necrotizing fasciitis: Status: Acute Assessment and Plan: I have changed all his dressings Packing reapplied Dakin's solution I have showed his mom to do dressing changes He had a being arranged Continue IV antibiotics Okay to DC home once VNA available Discussed with case finisher Time Spent With Patient Time: Total time managing care of this patient today ____ minutes. Quality Stroke Does the patient have a stroke diagnosis?: No VTE Prior VTE?: No VTE Risk Level:: Surgical - moderate VTE Device Contraindication: Treatment Not Tolerated VTE Drug Contraindication: N/A - Med Ordered
--- NOTE | 2024-02-14 11:08 | HO.PM.IMPN ---
Subjective Subjective Date of Service: 02/14/24 Interval History: Being followed for aspiration pneumonia and left buttock and perineal necrotizing fasciitis. Patient awake alert offers no acute complaints, denies cough, no shortness of breath, no pain, no acute events overnight. Wheelchair-bound. Review of Systems All other system reviewed and negative Physical Exam Vital Signs: Vital Signs: Last Vital Signs Temp 97.9 F 02/14/24 08:00 Pulse 76 02/14/24 08:00 Resp 20 02/14/24 08:00 BP 127/89 02/14/24 08:00 Pulse Ox 96 02/14/24 08:00 O2 Del Method Room Air 02/14/24 08:00 O2 Flow Rate 2 02/12/24 00:00 BMI result Body Mass Index 21.5 Const: Other: General resting comfortably in no acute distress. Neck no JVD. CVS regular rate rhythm, Respiratory lungs clear to auscultation, no respiratory distress, no wheeze, no rhonchi. Gastrointestinal abdomen soft, non tender, bowel sounds audible. Extremities no edema, Left buttock and perineal wound dressing in place (as per general surgery large open wound x2 on the left buttock area, small wound in the perineal area all clean no ongoing gangrene.) Neuro alert oriented x3, clear speech. Appropriate affect Objective Data Active Medications Acetaminophen (Acetaminophen 325 Mg Tablet) 650 mg PO Q6H PRN PRN Reason: Pain, Mild (Pain Scale 1-3), fever or headache Last Admin: 02/12/24 06:22 Dose: 650 mg Documented By: BENJAMIN Heparin Sodium (Porcine) (Heparin Sodium,Porcine 5,000 Unit/Ml Vial) 5,000 unit SUBCUT Q12H [facility] Last Admin: 02/14/24 00:18 Dose: 5,000 unit Documented By: ALLYSON Piperacillin Sod/Tazobactam (Sod 3.375 gm/ Sodium Chloride) 50 mls @ 100 mls/hr IV Q6H [facility] Last Infusion: 02/14/24 07:18 Dose: Infused Documented By: CONSTANCE Clindamycin Phosphate (Cleocin) 900 mg in 50 mls @ 50 mls/hr IV Q8H [facility] Last Infusion: 02/14/24 05:00 Dose: Infused Documented By: ALLYSON Vancomycin HCl 1,250 mg/ (Sodium Chloride) 250 mls @ 166.667 mls/hr IV Q24H [facility] Melatonin (Melatonin 3 Mg Tablet) 6 mg PO BEDTIME PRN PRN Reason: Insomnia Morphine Sulfate (Morphine Sulfate 4 Mg/Ml Cartridge) 2 mg IVPUSH Q4H PRN; Protocol PRN Reason: Pain, Severe (Pain Scale 7-10) Naloxone HCl (Naloxone Hcl 0.4 Mg/Ml Vial) 0.04 mg IVPUSH Q5M PRN PRN Reason: Excessive sedation or RR < 8 Omeprazole (Omeprazole 20 Mg Capsule.Dr) 20 mg PO DAILY@0630 [facility] Last Admin: 02/14/24 06:20 Dose: 20 mg Documented By: ALLYSON Ondansetron HCl (Ondansetron Hcl 4 Mg/2 Ml Vial) 4 mg IVPUSH Q8H PRN PRN Reason: Nausea and Vomiting Oxycodone HCl (Oxycodone Hcl Immed Release 5 Mg Tablet) 5 mg PO Q4H PRN PRN Reason: Pain, Severe (Pain Scale5-7 Last Admin: 02/12/24 20:15 Dose: 5 mg Documented By: SUSANNA Pharmacy Consult (Consult Rx Vancomycin Dosing) 1 each MISCELLANE DAILY PRN PRN Reason: Consult order Sodium Chloride (0.9 % Sodium Chloride Flush 3 Ml Syringe) 3 ml IVFLUSH QSHIFT [facility] Last Admin: 02/14/24 09:28 Dose: Not Given Documented By: CONSTANCE Non-Admin Reason: IV Running Sodium Hypochlorite (Sodium Hypochlorite 0.125% 473 Ml Solution) 1 appl TOPICAL DAILY [facility] Last Admin: 02/14/24 09:25 Dose: Not Given Documented By: CONSTANCE Non-Admin Reason: dressing dry and intact Labs 02/14/24 06:26 02/14/24 06:26 Labs: Laboratory Results - last 24 hr 02/13/24 02/14/24 18:20 06:26 MCV 86.1 MCH 30.6 MCHC 35.5 RDW 14.3 Plt Count 472 H MPV 9.1 L Absolute Nucleated RBC 0.000 Nucleated RBC % (auto) 0.0 Estim Creat Clear Calc 89.1 Estimated GFR > 60 Random Vancomycin 15.4 22.2 H Microbiology Microbiology Results: Microbiology 02/11/24 23:37 Gram Stain - Final Perineum Routine Culture - Preliminary Gram negative stephanie 02/11/24 18:21 Blood Culture - Preliminary Blood - Venous No growth after 48 hours. 02/11/24 18:14 Blood Culture - Preliminary Blood - Venous No growth after 48 hours. Assessment and Plan (1) Aspiration into airway: Status: Acute (2) Necrotizing fasciitis: Status: Acute Plan 28 y/o man with PMHx significant for spina bifida presents with : Sepsis due to Necrotizing fasciitis status post debridement [place]BC [place]ing [place], [place] [id number], stable hematocrit , blood cultures x2 negative times 48 hours, perineal culture grew Gram-negative stephanie on Clindamycin 900 mg IV every 8 hours,Zosyn 3.375 g IV every 6 hours and Vancomycin IV, for necrotizing fasciitis that cover aspiration pneumonia as well started on 02/11 Follow CBC and clinical course and final cultures Being followed by General surgery Dispo plan as per General surgery Will consult ID for choice and duration of antibiotics. Aspiration pneumonia. Stable oxygenation, tolerating diet with no worsening cough, no fevers Chest x-ray showed patchy opacities right lung upper lobe concerning for aspiration. On antibiotics as above Blood cultures no growth. Heparin for DVT prophylaxis Disposition as per General surgery. Quality Stroke Does the patient have a stroke diagnosis?: No VTE Prior VTE?: No VTE Risk Level:: Surgical - moderate VTE Device Contraindication: Treatment Not Tolerated VTE Drug Contraindication: N/A - Med Ordered
[2024-02-14 11:53] VITALS: BP 151/78; PULSE 72; RESP 20; TEMP 36.8; O2SAT 96
[2024-02-14 16:00] VITALS: BP 129/82; PULSE 64; RESP 18; TEMP 36.7; O2SAT 97
--- NOTE | 2024-02-14 16:13 | MHC.CM.PN ---
PER SURGEON, PT WILL NEED VNA FOR WOUND CARE VNA REFERRAL BROADCASTED THERE ARE FEW CONTRACTED WITH PTS [facility]
[2024-02-14 18:33] LABS: Estimated Glomerular Filt Rate > 60
--- NOTE | 2024-02-14 18:43 | HE.PHANOTE ---
SABIHA TREVIZO AFTER HIGH TROUGH 22.2 THIS MORNING DOSE WAS HELD AND TROUGH REDRAWN @1800. AFTER HOLDING THE DOSE THE TROUGH FELL TO 9.0 SO DOSE WAS DECREASED TO 1000 Q12 AND TROUGH WILL BE RECHECKED 02/14 @1800. CONTINUE MONITORING OF RENAL FUNCTION IT HAS CONTINUED TO WORSEN.
[2024-02-14 19:09] VITALS: BP 124/73; PULSE 98; RESP 20; TEMP 37.1; O2SAT 94
[2024-02-14] MEDS: vancomycin HCL 1,000 MG in 0.9 % Sodium Chloride 250 ML 270 MG IV (20:53)
[2024-02-14 23:40] VITALS: BP 131/83; PULSE 91; RESP 20; TEMP 37.2; O2SAT 96
[2024-02-15] MEDS: Heparin Sodium,Porcine 5,000 UNIT/ML VIAL 5000 UNIT SUBCUT ×2 (00:45→10:53)
[2024-02-15] MEDS: Piperacillin Sodium/Tazobactam 3.375 GM in 0.9 % Sodium Chloride 50 ML IV ×3 (00:45→12:09)
[2024-02-15 03:32] VITALS: BP 133/84; PULSE 88; RESP 20; TEMP 37; O2SAT 96
[2024-02-15] MEDS: Clindamycin Phosphate/D5W 900 MG/50 ML PIGGYBACK 50 MG IV ×2 (03:56→11:01)
[2024-02-15 05:11] LABS: CDiff Gene PCR NEGATIVE (Negative)
[2024-02-15] MEDS: Omeprazole 20 MG CAPSULE.DR PO (05:58)
[2024-02-15 06:27] LABS: Hematocrit 31.9 % (42.0-52.0); Hemoglobin 11.1 g/dl (14.0-18.0); Mean Corpuscular HGB Conc 34.8 g/dl (31.0-36.0); Mean Corpuscular Hemoglobin 30.6 pg (27.0-33.0); Mean Corpuscular Volume 87.9 fL (80.0-98.0); Mean Platelet Volume 9.1 fL (9.4-12.4); Platelet Count 488 X10*3/uL (160-400); Red Blood Count 3.63 X10*6/uL (4.60-5.80); Red Cell Distribution Width 14.7 % (11.0-16.0); White Blood Count 13.8 X10*3/uL (4.8-10.8)
[2024-02-15 07:05] LABS: Estimated Glomerular Filt Rate > 60
[2024-02-15 07:13] VITALS: BP 148/84; PULSE 80; RESP 20; TEMP 36.9; O2SAT 96
[2024-02-15] MEDS: 0.9 % Sodium Chloride Flush 3 ML SYRINGE IVFLUSH (07:59)
[2024-02-15] MEDS: vancomycin HCL 1,000 MG in 0.9 % Sodium Chloride 250 ML 270 MG IV (07:59)
[2024-02-15] MEDS: Sodium Hypochlorite 0.125% 473 ML SOLUTION 1 APPL TOPICAL (08:02)
--- NOTE | 2024-02-15 08:31 | PM.PNGS ---
Subjective Subjective Date of Service: 02/15/24 <Chica Hinkle PA-C - Last Filed: 02/15/24 08:48> 02/16/24 <Phuc Sorto MD - Last Filed: 02/16/24 11:19> Interval history: No new complaints. Had multiple BMs overnight and outer dressing had to be changed multiple times. Mom comfortable with wound care at home. <Chica Hinkle PA-C - Last Filed: 02/15/24 08:48> Physical Exam Vital Signs: Vital Signs: Last Vital Signs Temp 98.5 F 02/15/24 07:13 Pulse 80 02/15/24 07:13 Resp 20 02/15/24 07:13 BP 148/84 H 02/15/24 07:13 Pulse Ox 96 02/15/24 07:13 O2 Del Method Room Air 02/15/24 07:13 O2 Flow Rate 2 02/12/24 00:00 BMI result Body Mass Index 21.5 <Chica Hinkle PA-C - Last Filed: 02/15/24 08:48> Const: General: comfortable, no acute distress and alert <Chica Hinkle PA-C - Last Filed: 02/15/24 08:48> Orientation/consciousness: patient oriented x3 <Chica Hinkle PA-C - Last Filed: 02/15/24 08:48> Resp: Effort & Inspection: normal respiratory effort <Chica Hinkle PA-C - Last Filed: 02/15/24 08:48> Skin: Other: large open wound x2 on the left buttock area, smaller wound in the perianal area, all clean and granulating, no necrosis, surrounding tissue soft, no erythema <Chica Hinkle PA-C - Last Filed: 02/15/24 08:48> Neuro: General: patient oriented x3 <JULIO Alva Last Filed: 02/15/24 08:48> Objective Data Active Medications Acetaminophen (Acetaminophen 325 Mg Tablet) 650 mg PO Q6H PRN PRN Reason: Pain, Mild (Pain Scale 1-3), fever or headache Last Admin: 02/12/24 06:22 Dose: 650 mg Documented By: BENJAMIN Heparin Sodium (Porcine) (Heparin Sodium,Porcine 5,000 Unit/Ml Vial) 5,000 unit SUBCUT Q12H [facility] Last Admin: 02/15/24 00:45 Dose: 5,000 unit Documented By: ANICETO Piperacillin Sod/Tazobactam (Sod 3.375 gm/ Sodium Chloride) 50 mls @ 100 mls/hr IV Q6H [facility] Last Infusion: 02/15/24 06:46 Dose: Infused Documented By: ANICETO Clindamycin Phosphate (Cleocin) 900 mg in 50 mls @ 50 mls/hr IV Q8H [facility] Last Infusion: 02/15/24 05:15 Dose: Infused Documented By: ANICETO Vancomycin HCl 1,000 mg/ (Sodium Chloride) 270 mls @ 270 mls/hr IV Q12H [facility] Last Admin: 02/15/24 07:59 Dose: 270 mls/hr Documented By: GANGA Melatonin (Melatonin 3 Mg Tablet) 6 mg PO BEDTIME PRN PRN Reason: Insomnia Morphine Sulfate (Morphine Sulfate 4 Mg/Ml Cartridge) 2 mg IVPUSH Q4H PRN; Protocol PRN Reason: Pain, Severe (Pain Scale 7-10) Naloxone HCl (Naloxone Hcl 0.4 Mg/Ml Vial) 0.04 mg IVPUSH Q5M PRN PRN Reason: Excessive sedation or RR < 8 Omeprazole (Omeprazole 20 Mg Capsule.Dr) 20 mg PO DAILY@0630 [facility] Last Admin: 02/15/24 05:58 Dose: 20 mg Documented By: ANICETO Ondansetron HCl (Ondansetron Hcl 4 Mg/2 Ml Vial) 4 mg IVPUSH Q8H PRN PRN Reason: Nausea and Vomiting Oxycodone HCl (Oxycodone Hcl Immed Release 5 Mg Tablet) 5 mg PO Q4H PRN PRN Reason: Pain, Severe (Pain Scale5-7 Last Admin: 02/12/24 20:15 Dose: 5 mg Documented By: SUSANNA Pharmacy Consult (Consult Rx Vancomycin Dosing) 1 each MISCELLANE DAILY PRN PRN Reason: Consult order Sodium Chloride (0.9 % Sodium Chloride Flush 3 Ml Syringe) 3 ml IVFLUSH QSHIFT [facility] Last Admin: 02/15/24 07:59 Dose: 3 ml Documented By: GANGA Sodium Hypochlorite (Sodium Hypochlorite 0.125% 473 Ml Solution) 1 appl TOPICAL DAILY [facility] Last Admin: 02/15/24 08:02 Dose: 1 appl Documented By: GANGA <Chica Hinkle PA-C - Last Filed: 02/15/24 08:48> Labs CBC & Chem 7: 02/15/24 05:57 02/15/24 05:57 <Chica Hinkle PA-C - Last Filed: 02/15/24 08:48> Labs: Laboratory Results - last 24 hr 02/14/24 02/15/24 02/15/24 18:05 04:14 05:57 MCV 87.9 MCH 30.6 MCHC 34.8 RDW 14.7 Plt Count 488 H MPV 9.1 L Absolute Nucleated RBC 0.000 Nucleated RBC % (auto) 0.0 Estim Creat Clear Calc 84.0 104.0 Estimated GFR > 60 > 60 C-Reactive Protein 14.00 H Random Vancomycin 9.0 L C. difficile Tox B Gene NEGATIVE <Chica Hinkle PA-C - Last Filed: 02/15/24 08:48> Microbiology Microbiology Results: Microbiology 02/11/24 23:37 Gram Stain - Final Perineum Routine Culture - Final Pseudomonas aeruginosa Proteus mirabilis <Chica Hinkle PA-C - Last Filed: 02/15/24 08:48> Procedures Date of Service Date of Service: 02/15/24 <Chica Hinkle PA-C - Last Filed: 02/15/24 08:48> 02/16/24 <Phuc Sorto MD - Last Filed: 02/16/24 11:19> Progress Note: A&P Assessment and plan (1) Necrotizing fasciitis: Status: Acute <Chica Hinkle PA-C - Last Filed: 02/15/24 08:48> Assessment and Plan: Dressings changed Open wounds clean and healing well Dakin solution dressings with packing applied Mother says she is comfortable with doing dressing changes daily doing wound care Hospitalist recommended clindamycin and Augmentin on discharge; awaiting input from ID Possible home today Seen and examined independently <Phuc Sorto MD - Last Filed: 02/16/24 11:19> Assessment and Plan: Dressing changed with Dakin's solution packing to larger two wounds, smaller wound ok to leave unpacked Wounds remain clean appearing, no ongoing gangrene Mom comfortable with home dressing changes daily Awaiting ID input on abx Home hopefully later today Abebe lin, can resume straight cath Will discuss with home health care case manager <Chica Hinkle PA-C - Last Filed: 02/15/24 08:48> Time Spent With Patient Time: Total time managing care of this patient today ____ minutes. <Chica Hinkle PA-C - Last Filed: 02/15/24 08:48> Quality Stroke Does the patient have a stroke diagnosis?: No <JULIO Alva Last Filed: 02/15/24 08:48> VTE Prior VTE?: No <Chica Hinkle PA-C - Last Filed: 02/15/24 08:48> VTE Risk Level:: Surgical - moderate <JULIO Alva Last Filed: 02/15/24 08:48> VTE Device Contraindication: Treatment Not Tolerated <JULIO Alva Last Filed: 02/15/24 08:48> VTE Drug Contraindication: N/A - Med Ordered <JULIO Alva Last Filed: 02/15/24 08:48>
--- NOTE | 2024-02-15 09:29 | PC.NURSE ---
Daley cath was removed at 0925 per order. pt d/t void at 1525 to 1725.
[2024-02-15 10:07] LABS: Adenovirus F 40/41 Not Detected (Not Detect.); Astrovirus Not Detected (Not Detect.); Campylobacter Not Detected (Not Detect.); Cryptosporidium Not Detected (Not Detect.); Cyclospora cayetanensis Not Detected (Not Detect.); E. coli EAEC Not Detected (Not Detect.); E. coli EPEC Not Detected (Not Detect.); E. coli ETEC Not Detected (Not Detect.); E. coli STEC Not Detected (Not Detect.); Entamoeba histolytica Not Detected (Not Detect.); Giardia lamblia Not Detected (Not Detect.); Norovirus GI/GII Not Detected (Not Detect.); Plesiomonas shigelloides Not Detected (Not Detect.); Rotavirus A Not Detected (Not Detect.); Salmonella Not Detected (Not Detect.); Sapovirus Not Detected (Not Detect.); Shigella sp./EIEC Not Detected (Not Detect.); Vibrio Not Detected (Not Detect.); Vibrio Cholerae Not Detected (Not Detect.); Yersinia enterocolitica Not Detected (Not Detect.)
[2024-02-15] MEDS: Loperamide HCl 2 MG CAPSULE PO (10:53)
[2024-02-15 11:05] VITALS: BP 146/75; PULSE 58; RESP 18; TEMP 36.8; O2SAT 96
--- NOTE | 2024-02-15 11:29 | MHC.CM.PN ---
CM has referred to all area VNA's with no acceptances as of yet. CM will follow.
--- NOTE | 2024-02-15 13:02 | P.PNIM_ITS ---
Subjective Subjective Date of Service: 02/15/24 Interval History: feels well, ready to go home no fever Physical Exam 2 Vital Signs: Vital Signs: Last Vital Signs Temp 98.3 F 02/15/24 11:05 Pulse 58 02/15/24 11:05 Resp 18 02/15/24 11:05 BP 146/75 H 02/15/24 11:05 Pulse Ox 96 02/15/24 11:05 O2 Del Method Room Air 02/15/24 11:05 O2 Flow Rate 2 02/12/24 00:00 BMI result Body Mass Index 21.5 Gen: in no acute distress HEENT: sclera anicteric, moist mucus membranes Neck: supple Lungs: clear to auscultation bilaterally Heart: regular rate and rhythm, no murmurs Abd: soft, non-tender, non-distended Ext: no edema Skin: warm/well-perfused, 2 large L buttock wounds and 1 small perianal wound clean and granulating without any necrosis or surrdounding erythema [per Surgery] Neuro: alert and oriented x3 Psych: appropriate affect Objective Data Active Medications Acetaminophen (Acetaminophen 325 Mg Tablet) 650 mg PO Q6H PRN PRN Reason: Pain, Mild (Pain Scale 1-3), fever or headache Last Admin: 02/12/24 06:22 Dose: 650 mg Documented By: BENJAMIN Heparin Sodium (Porcine) (Heparin Sodium,Porcine 5,000 Unit/Ml Vial) 5,000 unit SUBCUT Q12H [facility] Last Admin: 02/15/24 10:53 Dose: 5,000 unit Documented By: GANGA Piperacillin Sod/Tazobactam (Sod 3.375 gm/ Sodium Chloride) 50 mls @ 100 mls/hr IV Q6H [facility] Last Infusion: 02/15/24 12:39 Dose: Infused Documented By: GANGA Clindamycin Phosphate (Cleocin) 900 mg in 50 mls @ 50 mls/hr IV Q8H [facility] Last Infusion: 02/15/24 12:01 Dose: Infused Documented By: GANGA Vancomycin HCl 1,000 mg/ (Sodium Chloride) 270 mls @ 270 mls/hr IV Q12H [facility] Last Infusion: 02/15/24 09:00 Dose: Infused Documented By: GANGA Loperamide HCl (Loperamide Hcl 2 Mg Capsule) 2 mg PO Q4H PRN PRN Reason: diarrhoea Last Admin: 02/15/24 10:53 Dose: 2 mg Documented By: GANGA Melatonin (Melatonin 3 Mg Tablet) 6 mg PO BEDTIME PRN PRN Reason: Insomnia Morphine Sulfate (Morphine Sulfate 4 Mg/Ml Cartridge) 2 mg IVPUSH Q4H PRN; Protocol PRN Reason: Pain, Severe (Pain Scale 7-10) Naloxone HCl (Naloxone Hcl 0.4 Mg/Ml Vial) 0.04 mg IVPUSH Q5M PRN PRN Reason: Excessive sedation or RR < 8 Omeprazole (Omeprazole 20 Mg Capsule.Dr) 20 mg PO DAILY@0630 [facility] Last Admin: 02/15/24 05:58 Dose: 20 mg Documented By: ANICETO Ondansetron HCl (Ondansetron Hcl 4 Mg/2 Ml Vial) 4 mg IVPUSH Q8H PRN PRN Reason: Nausea and Vomiting Oxycodone HCl (Oxycodone Hcl Immed Release 5 Mg Tablet) 5 mg PO Q4H PRN PRN Reason: Pain, Severe (Pain Scale5-7 Last Admin: 02/12/24 20:15 Dose: 5 mg Documented By: SUSANNA Pharmacy Consult (Consult Rx Vancomycin Dosing) 1 each MISCELLANE DAILY PRN PRN Reason: Consult order Sodium Chloride (0.9 % Sodium Chloride Flush 3 Ml Syringe) 3 ml IVFLUSH QSHIFT [facility] Last Admin: 02/15/24 07:59 Dose: 3 ml Documented By: GANGA Sodium Hypochlorite (Sodium Hypochlorite 0.125% 473 Ml Solution) 1 appl TOPICAL DAILY [facility] Last Admin: 02/15/24 08:02 Dose: 1 appl Documented By: GANGA Labs 02/15/24 05:57 02/15/24 05:57 Labs: Laboratory Results - last 24 hr 02/14/24 02/15/24 02/15/24 18:05 04:14 05:57 MCV 87.9 MCH 30.6 MCHC 34.8 RDW 14.7 Plt Count 488 H MPV 9.1 L Absolute Nucleated RBC 0.000 Nucleated RBC % (auto) 0.0 Estim Creat Clear Calc 84.0 104.0 Estimated GFR > 60 > 60 C-Reactive Protein 14.00 H Stl C. cayetanensis PCR Not Detected Stool Rotavirus A PCR Not Detected Stl Adenov F 40/41 PCR Not Detected Stool Astrovirus (PCR) Not Detected Stool Campylobacter PCR Not Detected Stool Cryptosporidium PCR Not Detected Stl Sh Tox Pr E STEC PCR Not Detected Stool E coli O157 PCR Not applicable Stl Enterotoxigenic E PCR Not Detected Stool EPEC (PCR) Not Detected Stool EAEC (PCR) Not Detected Stl E. histolytica PCR Not Detected Stool Giardia Lamblia PCR Not Detected Stl P. shigelloides PCR Not Detected Stool Salmonella PCR Not Detected Stool Sapovirus (PCR) Not Detected Stl Shigella/EIEC PCR Not Detected St Y.enterocolitica PCR Not Detected Stool Vibrio (PCR) Not Detected Stl Vibrio cholerae PCR Not Detected Stl Norovirus GI/GII PCR Not Detected Random Vancomycin 9.0 L C. difficile Tox B Gene NEGATIVE Microbiology Microbiology Results: Microbiology 02/11/24 23:37 Gram Stain - Final Perineum Routine Culture - Final Pseudomonas aeruginosa Proteus mirabilis Assessment and Plan (1) Aspiration into airway: Status: Acute (2) Necrotizing fasciitis: Status: Acute Plan d5 28yo M with spina bifida admitted to Gen Surg with sepis due to necrotizing fasciitis necrotizing fasciitis - s/p debridement in OR 02/10, has been on clindamycin + piperacillin-tazobactam + vancomycin since 02/10, ID consulted and will change to levofloxacin + metronidazole x14d upon discharge; wound care at home and outpt Surgery follow- up aspiration PNA - antibiotics as above will cover; RN NICU evaluation with no abnormalities; likely was related to anesthesia VTE ppx - UFH dispo - eventual home with VNA Thank you for this consultation. We are signing off the case at this time. Please communicate with us if any new medical questions arise. Total time managing care of this patient today: 35 minutes. Quality Stroke Does the patient have a stroke diagnosis?: No VTE Prior VTE?: No VTE Risk Level:: Surgical - moderate VTE Device Contraindication: Treatment Not Tolerated VTE Drug Contraindication: N/A - Med Ordered
--- NOTE | 2024-02-15 13:10 | MHC.CM.PN ---
Patient has been medically cleared for dc to home today, with services.Attending and Surgeon are aware that Patient has no accepting VNA. Per Surgeon, Patient can go home self care ) yes.Talked to his mom ).
--- NOTE | 2024-02-15 13:22 | MHC.SL.SWA ---
Speech Pathologist Impression: No dysphagia Risk of Aspiration Due to: None Dysphasia Diet Status: Resuming regular diet with thin liquids, no dysphagia evident Liquid Consistency and Strategies for Safe Swallow: Liquid Intake Recommendation: Thin Liquid Intake Strategies: Unrestricted Solid Food Consistency: Dietary Recommendations: Regular Additional Modifications to Solid Foods: Oral Medication Intake: Whole with Liquid Please contact the pharmacy regarding appropriate crushable or liquid drug formulations that are available whenever modified delivery is recommended. Compensatory Strategies and Precautions to be Taken for Safe Swallow: Upright positioning to most elevated pt can torate Supervision While Eating and Drinking for Safe Swallow: None Needed Foods to Avoid: Swallowing Recommended Treatments: No dysphagia symptoms or signs, pt oropharyngeal coordination WNL s/p surgery Recommendation for Speech: NA:Typical Evaluation Comment: Pt presents with typical and efficient oropharyngeal swallow characterized by timely coordination of bolus preparation, anterior to posterior propulsion, oral containment and trigger of pharyngeal swallow. No overt s/s of aspiration with trials, pt denies persisting dysphagia, episode of aspiration PNA isolated to acute occurrence, no prior hx of dysphagia or aspiration PNA. Frequency/Duration: n/a Date Range for Service Req: n/a Timeline to reassess: n/a Rail Track Layer Clinican/Clinical Fellow: No Supervisory Statement: I have reviewed and agree with the student/clinical fellow's documentation: N/A Speech Language Pathologist: Connie Peng M.S. [facility]
--- NOTE | 2024-02-15 14:28 | PM.DS ---
DS: Providers Provider Date of Service: 02/15/24 Date of admission: 02/11/24 21:26 Date of discharge: 02/15/24 [facility] Attending physician on admission: Bren Jackson Consults: 02/11/24 21:28 Consult to Hospitalist Stat Comment: Consulting Provider: Hospitalist Reason For Exam: medical management 02/14/24 13:42 Consult to Infectious Diseases Routine Consulting Provider[place] [facility] [place] [facility] Reason for consultation: necrotizing fascitis Has provider been notified: No Attending physician on discharge: Phuc Sorto DS: Diagnosis Discharge Diagnosis (1) Necrotizing fasciitis: Status: Acute DS: Summary Hospital Course Hospital Course: HPI AT ADMISSION: Brad Sanchez is a 28 year old male with spina bifida who 3 days ago was transferring from his wheelchair to the floor and landed hard. He had a little bit of a bruise and induration on the back of his thigh gluteal crease area for awhile. The following day there was a little hole there and then by the next day today there was necrotic tissue an odor and the patient had chills. He lives with his mom and she was taking care this area. As a result she brought him into the emergency room where his white count was noted to be 27 and he had an ultrasound which showed normal scrotal anatomy and structures but peritoneum with fluid and gas going to the left buttock thigh area. He is findings were consistent with necrotizing fasciitis. He was seen by Urology who does not think that there is anything for them to do and as a result we are called to take him to the OR for debridement and further resuscitation. Patient has never had anything like this. 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 He also has had 2 [employer] shunts. Overall he is very active in his good with moving himself lifting up and out of his wheelchair. HOSPITAL COURSE: He was admitted to the surgical service for further treatment of the sepsis, necrotizing infection. He was kept NPO, started on IVF and IV abx. On 02/11/24, debridement of necrotizing fasciitis tissue left buttock perineal area was performed by Dr. Jackson. There was concern he aspirated during the case as he was hypoxic and tachypneic in recovery. Hospitalist consult was obtained and he was started on IV abx empirically and CXR was obtained which showed patchy opacities in the right lung concerning for aspiration PNA. The patient improved clinically and remained stable from a respiratory status during his stay. His sepsis resolved. His wounds continually improved with dakins soaked packing and did not require any further debridement. There was no further necrotic tissue and no purulent drainage, the wound bases were beginning to granulate. Abscess cultures grew Pseudomonas aeruginosa and Proteus mirabilis. ID consulted and will change to levofloxacin + metronidazole x14d upon discharge. The patient was doing well, tolerating a solid diet, moving his bowels. His wounds remained clean and he was hemodynamically stable. He was discharged to home on 02/15/24 with VNA services on course of PO abx as noted above. Mom also felt comfortable with dressing changes. He is to f/u with his PCP and with Dr. Sorto in 1 week. Dressing changes: dakins soaked fluff to two large buttock/perineal wounds followed by dry fluff/abd. Change packing daily and outer dressing as needed. Status at Discharge Functional status at discharge: wheelchair bound Overall status at discharge: patient is progressing back to baseline Time Attestation Discharge Coordination Time (in mins): 40 Quality: Safe Use of Opioids Does Pt have an Active Cancer Diagnosis on the Problem List?: No Quality: Stroke Does the patient have a stroke diagnosis?: No Physical Exam Vital Signs: Vital Signs: Last Vital Signs Temp 98.3 F 02/15/24 11:05 Pulse 58 02/15/24 11:05 Resp 18 02/15/24 11:05 BP 146/75 H 02/15/24 11:05 Pulse Ox 96 02/15/24 11:05 O2 Del Method Room Air 02/15/24 11:05 O2 Flow Rate 2 02/12/24 00:00 BMI result Body Mass Index 21.5 Const: General: comfortable, no acute distress and alert Orientation/consciousness: patient oriented x3 Skin: Other: large open wound x2 on the left buttock area, smaller wound in the perianal area, all clean and granulating, no necrosis, surrounding tissue soft, no erythema Neuro: General: patient oriented x3 DS: Data Data Completed and Pending Labs on day of discharge: Preliminary micro results at discharge 02/11/24 18:21 Blood Culture - Preliminary Blood - Venous No growth after 48 hours. 02/11/24 18:14 Blood Culture - Preliminary Blood - Venous No growth after 48 hours. Discharge Plan Discharge Anticipated Discharge Date/Time: 02/15/24 12:49 Patient Disposition: Home Health Service Discharge Diagnosis: necrotizing fasciitis [place]: [facility] [place] [facility] [Provider Group] - 1 Week Duarte Morales FNP- [Primary Care Provider] - 1 Week Phuc Sorto MD [Physician] - 2 Weeks Discharge Medications: New levofloxacin 750 mg tablet 750 mg PO DAILY Qty: 10 0RF metronidazole 500 mg tablet 500 mg PO TID Qty: 30 0RF Dakin's Solution 0.125 % solution 1 appl topical DAILY Qty: 473 0RF Continued ibuprofen 200 mg Tablet 400 mg PO Q8H PRN (Reason: Fever/Pain) (DME) wheelchair See Rx Instructions .Route .MEDSUPPLY Qty: 1 0RF Rx Instructions: wheelchair Discharge Orders: Discharge Order (Routine); Ordered 02/15/24 Ordered By: Chica Hinkle Diet: Advance to usual diet Activity on Discharge: As tolerated Stand Alone Forms: Patient Portal Discharge page Print Language: Iranian Activity Restrictions/Additional Instructions: Follow up in the office in two weeks. ([phone]) Follow up with your PCP. Wound care: Dakins solution soaked fluff to two wound beds followed by dry fluffs, abdominal dressing. Change daily. Change outer dressing as needed if becomes soiled. Call Your Doctor If: ? ? -Your temperature exceeds 101.5? F? ? ? -You experience excessive pain or swelling ? ? -You have an unexpected reaction to medication ? ? -You experience continued vomiting/nausea Care Plan Goals: Return to baseline health and resume normal activities. Health Concerns: necrotizing fasciitis pneumonia spina bifida Plan of Treatment: I&D and debridement Daily wound care IV transitioned to PO abx F/u in office with Dr. Sorto, with PCP. Wound care clinic referral. Assessment: Doing well post op. Discharge Date/Time: 02/15/24 13:45
--- NOTE | 2024-03-01 10:17 | P.CDIM_ITS ---
PROVIDER RESPONSE TEXT: To clarify, the appropriate diagnosis supported by the clinical indicators: Aspiration Pneumonia: possible during surgical procedure QUERY TEXT: PHYSICIAN'S DOCUMENTATION REQUEST Date of Query: 02/26/2024 07:32 AM EDT Patient Name: Brad Sanchez Admit Date: 02/12/2024 Dear Chica Hinkle PA-C, RETROSPECTIVE QUERY A review of the medical record indicates additional documentation may be needed. Please review below and update the documentation accordingly. Clinical Indicators: Op note dated 02/10 - During the operation the patient was placed head down with the LMA and my have r egurgitated a little bit but not certain if any obvious aspiration. Surgery progress note 02/11 - Concern for aspiration during procedure-CXR this AM shows possible R marie ed infiltrate. Cont IV abx for necrotizing fasciitis and presumed aspiration. Event note 02/11 - Chest x ray showed patchy opacities in the right lung, most notably in the midline upper lobe concerning for aspiration or pneumonia. Attending progress note 02/14 - Aspiration pna - antibiotics as above will cover; PRODUCT P[employer]ER evaluation with no abnormalities, likely was related to anesthesia. Based on the above, could you clarify further specificity regarding the most likely etiology of noted Aspiration Pneumonia: Aspiration Pneumonia Please indicate substance such as food or vomitus, oils, or other solids or liquids Aspiration Pneumonia Please indicate if due to Anesthesia, possible, probable, suspected etc. Other (explain) Clinically unable to determine (explain) Thank you, Kate Torres, CCS, CDIS Use of terms such as suspected, likely, concern for, or probable (associated with a specific diagnosi s that is being evaluated, monitored, or treated as if it exists) are acceptable and can be coded in the inpatient se tting, when documented at the time of discharge. Please use your independent medical judgment in providing your response. THIS QUERY IS PART OF THE PERMANENT MEDICAL RECORD
== END 2024-02-15 13:45 | disposition home health service (06) | DRG 710 ==
LOC: HO.ED 20:48 → HO.EDOVER 21:34 → HO.IMC 22:42
PROVIDERS: Family Medicine; Hospitalist; Internal Medicine; Physician Assistant; Student in an Organized Health Care Education/Training Program; Admitting Provider Surgery; Emergency Provider Emergency Medicine; PCP Nurse Practitioner Family; Visit Provider Surgery
PROC: 0KBP0ZZ Excision of Left Hip Muscle, Open Approach (ICD-10-PCS; principal; 2024-02-11 22:00)
DX: A41.9 Sepsis, unspecified organism (principal); M72.6 Necrotizing fasciitis; J69.0 Pneumonitis due to inhalation of food and vomit; E87.6 Hypokalemia; N49.3 Fournier gangrene; I10 Essential (primary) hypertension; W05.0XXA Fall from non-moving wheelchair, initial encounter; Q05.9 Spina bifida, unspecified; Z99.3 Dependence on wheelchair; Z79.899 Other long term (current) drug therapy
CPT/HCPCS: 36415; 71045; 72193; 76870; 80048; 80053; 80076; 80202; 81001; 82565; 83605; 83735; 84132; 85007; 85027; 85610; 85652; 85730; 86140; 86850; 86900; 86901; 87040; 87070; 87077; 87186; 87205; 87493; 87507; 92610; 93005; 93975; 99285; C1758; J0736; J1644; J1790; J2060; J2270; J2405; J2470; J2543; J2704; J3010; J3370; J3371; J3480; Q9967

== ENCOUNTER → 2024-02-11 21:26 | Outpatient (BNV) | payer OTHER, SELFPAY | PROVIDERS: Admitting Provider Surgery; Emergency Provider Emergency Medicine; PCP Nurse Practitioner Family; Visit Provider Surgery | DX: M72.6 Necrotizing fasciitis (principal) | CPT/HCPCS: 11004; 99024; 99222; 99232; 99239 ==

== ENCOUNTER → 2024-02-11 21:26 | Outpatient (BNV) | payer OTHER, SELFPAY | PROVIDERS: Admitting Provider Surgery; Emergency Provider Emergency Medicine; PCP Nurse Practitioner Family; Visit Provider Internal Medicine | DX: M72.6 Necrotizing fasciitis (principal); T17.908A Unspecified foreign body in respiratory tract, part unspecified causing other injury, initial encounter | CPT/HCPCS: 99222; 99232; 99499 ==